=== PATIENT | male | born 1945 | race African-American/Black ===

== ENCOUNTER 2017-10-30 06:26 | Day surgery (SDC) | payer OTHER ==
--- NOTE | 2017-10-17 15:35 | RAD REPORT ---
EXAM DESCRIPTION: Sen Callahan And Heath (2 Views)10/17/2017 3:26 pm CLINICAL HISTORY: Coronary artery disease/cardiac catheterization COMPARISON: None FINDINGS: The lungs appear clear of acute infiltrate. The heart is normal size. Aorta is tortuous/e ctatic IMPRESSION: No acute abnormalities displayed
--- OUTSIDE RECORDS SUMMARY | 2017-10-30 06:28 | XMS REPORT | Clinical Summary ---
:1945 Author Organization [facility] Address [address] [place] [address] Care Team Providers Name Role Phone Gagan Salinas MD Primary Care Provider Allergies Active Allergy Reactions Severity Noted Date Comments Propoxyphene Rash Low 09/09/2015 Valsartan 09/09/2015 Current Medications Prescription Sig. Disp. Refills Start End Date Status Date cyanocobalamin 1000 Take 1,000 mcg by Active MCG tablet mouth daily. cholecalciferol, Take 8,000 Units Active vitamin D3, by mouth daily. (VITAMIN D3) 4,000 unit capsule zinc 50 mg tablet Take 50 mg by Active mouth daily. jyrjteeq-spj-xqdxcd Take 500 mg by Active -vit C-hyal mouth 3 (three) [phone] mg times a day. tablet b complex vitamins Take 1 tablet by Active (B-50 COMPLEX) mouth daily. tablet insulin degludec Inject 50 Units 30 mL 3 Active (TRESIBA FLEXTOUCH under the skin 6 U-200) 200 unit/mL daily. (3 mL) insulin pen omeprazole Take 20 mg by Active (PriLOSEC) 20 MG mouth daily. capsule amLODIPine TAKE 1 TABLET BY 90 tablet 3 Active (NORVASC) 10 mg MOUTH EVERY DAY 7 tablet allopurinol Take 1 tablet (300 90 tablet 3 Active (ZYLOPRIM) 300 MG mg total) by mouth 7 tablet daily. lancets misc Use 3 times daily 300 each 3 Active as needed 8 furosemide (LASIX) TAKE 1 TABLET BY 90 tablet 1 Active 20 mg tablet MOUTH EVERY DAY 8 atorvastatin TAKE 1 TABLET BY 90 tablet 2 Active (LIPITOR) 20 MG MOUTH ONCE A DAY 8 tablet BD ULTRA-FINE [place]EL[place]Y USE WITH INSULIN 200 each 1 Active PEN NEEDLES 32 PENS 8 gauge x 5/32" needle NOVOLOG FLEXPEN INJECT 15 UNITS 45 pen 3 Active U-100 INSULIN 100 SUBCUTANEOUSLY 3 8 unit/mL insulin pen TIMES A DAY BEFORE MEALS metoprolol tartrate TAKE 1 TABLET BY 60 tablet 0 Active (LOPRESSOR) 100 mg MOUTH 2 TIMES 8 tablet DAILY WITH A MEAL metoprolol Take 100 mg by 08/03/19 Discontinued succinate XL mouth 2 (two) 18 (TOPROL-XL) 100 MG times a day. 24 hr tablet allopurinol Take 1 tablet (300 90 tablet 3 01/11/20 Discontinued (ZYLOPRIM) 300 MG mg total) by mouth 6 17 tablet daily. pen needle, Use with insulin 300 each 3 06/20/19 Discontinued diabetic (BD pens 6 18 ULTRA-FINE [place] PEN NEEDLES) 32 gauge x 5/32" needle MICROLET LANCET USE TO TEST 3 300 each 0 05/01/19 Discontinued misc TIMES DAILY 7 18 furosemide (LASIX) Take 1 tablet (20 90 tablet 1 11/28/19 Discontinued 20 mg tablet mg total) by mouth 7 17 daily. atorvastatin TAKE 1 TABLET BY 90 tablet 2 06/01/19 Discontinued (LIPITOR) 20 MG MOUTH DAILY 7 18 tablet NOVOLOG FLEXPEN 100 INJECT 15 UNITS 45 pen 3 07/20/19 Discontinued unit/mL insulin pen SUBCUTANEOUSLY 3 7 18 TIMES A DAY BEFORE MEALS blood sugar Use 1 test strip 3 300 strip 3 05/01/19 Discontinued diagnostic strips times daily for 7 18 (CONTOUR TEST diabetes STRIPS) strip test strips metoprolol tartrate TAKE 1 TABLET BY 180 tablet 2 08/03/19 Discontinued (LOPRESSOR) 100 mg MOUTH 2 TIMES 7 18 tablet DAILY WITH A MEAL furosemide (LASIX) TAKE 1 TABLET (20 90 tablet 1 06/01/19 Discontinued 20 mg tablet MG TOTAL) BY MOUTH 7 18 DAILY. blood sugar One Touch Verio Strips Use 1 test strip 3 times daily for diabetes 300 strip 6 05/03/19 Discontinued diagnostic strips Dx:E11.9 8 18 (glucose blood) strip test strips lancets (MICROLET USE TO TEST 3 TIMES DAILY 300 each 6 05/03/19 Discontinued LANCET) misc Lancets for One Touch Verio 8 18 Active Problems Problem Noted Date Peripheral edema 05/26/2016 Chronic kidney disease, stage III (moderate) 09/09/2015 Abnormal electrocardiogram 09/09/2015 Onychomycosis 09/09/2015 Testicular hypofunction 09/09/2015 Elevated prostate specific antigen (PSA) 01/25/2013 Uncontrolled type 2 diabetes mellitus 10/17/2011 Degeneration of intervertebral disc of lumbar region 06/03/2010 Diabetes mellitus 06/03/2010 Essential hypertension 06/03/2010 Gout 06/03/2010 Malignant neoplasm of prostate 06/03/2010 Mixed hyperlipidemia 06/03/2010 Encounters Date Type Specialty Care Team Description 09/27/2017 Refill Internal Medicine Gagan Salinas MD 08/02/2017 Refill Internal Medicine Gagan Salinas MD 07/19/2017 Refill Internal Medicine Gagan Salinas MD 06/19/2017 Refill Endocrinology Gagan Salinas MD 06/01/2017 Refill Internal Gagan Patel MD 05/03/2017 Orders Only Internal Medicine Gagan Salinas MD 05/01/2017 Orders Only Access Gagan Salinas MD 05/01/2017 Refill Internal Medicine Yumiko Mednez MA 01/10/2017 Refill Internal Medicine Yumiko Mendez MA 11/27/2016 Refill Internal Medicine Gagan Salinas MD 11/01/2016 Orders Only Internal Medicine Gagan Salinas Type 2 diabetes mellitus with complication, unspecified snf insulin use status (Primary Dx) 10/31/2016 Telephone Internal Medicine Tiera Gomez LVN after 10/29/2016 Immunizations Name Dates Previously Given Next Due FLUZONE HIGH-DOSE PF 02/15/2016, 12/05/2013 Influenza Split 03/07/2011 Influenza Trivalent 12/06/2007 Pneumococcal Conjugate 13-Valent 02/15/2016 Pneumococcal Polysaccharide 12/08/2009, 12/06/2007 Td 10/06/2008 Family History Medical History Relation Name Comments Diabetes Brother Hypertension Brother Kidney disease Brother Hypertension Father Stroke Father Cancer Mother Relation Name Status Comments Brother Father Mother Social History Tobacco Use Types Packs/Day Years Used Date Never Smoker Smokeless Tobacco: Never Used Alcohol Use Drinks/Week oz/Week Comments No Sex Assigned at Date Recorded Not on file Last Filed Vital Signs Not on file Plan of Treatment Health Maintenance Due Date Last Done Comments SHINGRIX VACCINE (#1) 1994 ZOSTER VACCINE 2004 DIABETIC FOOT EXAM 02/14/2017 02/15/2016, 02/15/2016, 10/21/2015 INFLUENZA VACCINE 11/08/2017 02/15/2016, 02/15/2016, 12/05/2013, Additional history exists DIABETIC RETINAL EYE EXAM 06/13/2018 06/13/2016, 03/22/2015 COLON CANCER SCREENING 05/26/2021 05/26/2016, 03/07/2008 PNEUMOCOCCAL POLYSACCHARIDE VACCINE Completed 12/08/2009, 12/06/2007 AGE 65 AND OVER PNEUMOCOCCAL-13 Completed 02/15/2016 Procedures Procedure Name Priority Date/Time Associated Diagnosis Comments HEMOGLOBIN A1C Routine 11/01/2016 9:13 AM Type 2 diabetes Results for this CDT mellitus with procedure are in complication, the results unspecified multimedia journalist section. insulin use status after 10/29/2016 Results Hemoglobin A1c (11/01/2016 9:13 AM) Hemoglobin A1C 7.1 (H) <5.7 % of total [facility] Comment: b INDEPENDENCE For someone without known diabetes, a hemoglobin A1c value of 6.5% or greater indicates that they may have diabetes and this should be confirmed with a follow-up test. For someone with known diabetes, a value <7% indicates that their diabetes is well controlled and a value greater than or equal to 7% indicates suboptimal control. A1c targets should be individualized based on duration of diabetes, age, comorbid conditions, and other considerations. Currently, no consensus exists regarding use of hemoglobin A1c for diagnosis of diabetes for children. Specimen Blood Narrative Performed At FASTING[facility] Resulting Agency Comment Performing Organization Information: Site ID: [id number] Name: [facility] Address: [address] [place] [id number] Director: Kathya Myles MD Performing Organization Address City/State/Zipcode Phone Number [employer] [facility] [address] [place], [place] [id number] after 10/29/2016 Insurance Payer Benefit Plan / Group Subscriber ID Type Phone Address AETNA MEDICARE AETNA MEDICARE HMO/PPO [facility] xxxxxxxx HMO Work: [id number] [phone] [phone] [place], [place] Home: [id number] [phone] [facility]
[2017-10-30] MEDS ORDERED: NA CHLORIDE 0.9% 500 ML ONE (06:38)
[2017-10-30] MEDS ORDERED: HEPA 1000U/500MLS 2,000 UNIT/1,000 ML BAG IV ONE (06:59)
[2017-10-30] MEDS ORDERED: LIDOCAINE 1% MPF 2 ML AMPULE ONE (06:59)
[2017-10-30 07:07] LABS: Absolute Monocytes 0.8 K/uL (0.1-1.3); Absolute Neutrophil 3.8 K/uL (1.8-8.0); Basophils % 0.4 % (0-1.3); Eosinophils % 3.9 % (0-4.4); Hematocrit 39.4 % (39.6-49.0); Lymphocytes % 28.8 % (15.3-44.8); MCH 27.8 pg (27.0-35.0); MCV 82.1 fL (80-100); MPV 10.2 fL (7.6-11.3); Monocytes % 11.1 % (3.3-12.3)
[2017-10-30 07:11] LABS: Protime INR 0.98
[2017-10-30] MEDS ORDERED: NICARDIPINE HCL 25 MG/10 ML IV ONE (07:29)
[2017-10-30] MEDS ORDERED: HEPARIN 5000 UNIT/ML 1 ML VIAL ONE (07:29)
[2017-10-30] MEDS ORDERED: MIDAZOLAM HCL 2 MG/2 ML INJ ONE (07:29)
[2017-10-30] MEDS ORDERED: NITROGLYCERIN/D5W 25 MG/250 ML BTL IV ONE (07:29)
[2017-10-30] MEDS ORDERED: FENTANYL CITR 100 MCG/2 ML ONE (07:29)
[2017-10-30] MEDS ORDERED: NA CHLORIDE 0.9% 0 ML ONE (07:30)
[2017-10-30] MEDS ORDERED: ATROPINE SULF 1 MG/10 ML SYR IV ONE (07:30)
== END 2017-10-30 08:50 | disposition home or self-care (01) ==
LOC: CCL 06:26
PROVIDERS: ATTEND Internal Medicine
PROC: 4A023N7 Measurement of Cardiac Sampling and Pressure, Left Heart, Percutaneous Approach (ICD-10-PCS; principal; 2017-10-30)
PROC: B200YZZ Plain Radiography of Single Coronary Artery using Other Contrast (ICD-10-PCS; 2017-10-30)
PROC: B205YZZ Plain Radiography of Left Heart using Other Contrast (ICD-10-PCS; 2017-10-30)
DX: I25.10 Atherosclerotic heart disease of native coronary artery without angina pectoris (principal); Z53.8 Procedure and treatment not carried out for other reasons; R94.4 Abnormal results of kidney function studies
CPT/HCPCS: 36415; 71046; 80048; 82962; 85025; 85610; 85730; 93458; J1644; J2250; J3010; J0583; J2001

== ENCOUNTER 2018-01-06 06:52 | Emergency (ER) | payer OTHER ==
--- OUTSIDE RECORDS SUMMARY | 2018-01-06 06:54 | XMS REPORT ---
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, unspecified site Problem Type 2 diabetes mellitus without E11.9 Active complications Problem Coronary artery disease involving I25.10 Active [place] coronary artery of [place] heart without angina pectoris Problem 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
--- OUTSIDE RECORDS SUMMARY | 2018-01-06 06:54 | XMS REPORT ---
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, unspecified site Problem Type 2 diabetes mellitus without E11.9 Active complications Problem Coronary artery disease involving I25.10 Active [place] coronary artery of [place] heart without angina pectoris Problem 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 Problem Chronic kidney disease, stage 4 N18.4 Active (severe) Problem Gastroesophageal reflux disease K21.9 Active without esophagitis Problem Essential hypertension I10 Active Problem Coronary artery disease of [place] I25.118 Active artery with stable angina pectoris, unspecified whether [place] or transplanted heart Problem Chronic kidney disease, N18.9 Active unspecified CKD stage Medications Medication Code Code Instructions Start End Status Dosage System Date Date Atorvastatin ND 40880504322 20 MG Orally Active 1 tablet Calcium Once a day Allopurinol [facility] 22504672569 100 MG Orally Active 1 tablet Once a day Calcitriol ND 87268302838 0.25 MCG Orally Active 1 capsule Once a day Amlodipine ND 58941953877 5 MG Orally Active 1 tablet Besylate Once a day Metoprolol ND 12395344715 50 MG Orally October 03, Active 1 tablet Tartrate Twice a day 2017 with food Lisinopril ND 28906433659 20 MG Orally November 02, Active 1 tablet Once a day 2018 Xultophy ND 86929298241 100-3.6 November 02, Active 30 units UNIT-MG/ML 2018 Subcutaneous daily HydrALAZINE HCl ND 43468327250 25 MG Orally Active 1 tablet Three times a with food day Results No Known Results Summary Purpose [employer]Works Submission
--- OUTSIDE RECORDS SUMMARY | 2018-01-06 06:54 | XMS REPORT ---
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, unspecified site Problem Type 2 diabetes mellitus without E11.9 Active complications Problem Coronary artery disease involving I25.10 Active [place] coronary artery of [place] heart without angina pectoris Problem 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
--- OUTSIDE RECORDS SUMMARY | 2018-01-06 06:54 | XMS REPORT ---
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, unspecified site Problem Type 2 diabetes mellitus without E11.9 Active complications Problem Coronary artery disease involving I25.10 Active [place] coronary artery of [place] heart without angina pectoris Problem 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 Problem Chronic kidney disease, stage 4 N18.4 Active (severe) Problem Gastroesophageal reflux disease K21.9 Active without esophagitis Problem Essential hypertension I10 Active Problem Coronary artery disease of [place] I25.118 Active artery with stable angina pectoris, unspecified whether [place] or transplanted heart Problem Chronic kidney disease, N18.9 Active unspecified CKD stage Medications Medication Code Code Instructions Start End Date Status Dosage System Date Tresiba [facility] 33368594980 200 UNIT/ML Jan 01 20 units FlexTouch Subcutaneous 2017 once daily Victoza [facility] 60283293754 18 MG/3ML Jan 01June Active 1.2 mg Subcutaneous 2017 once daily Results No Known Results Summary Purpose [employer]ClinicalWorks Submission
--- OUTSIDE RECORDS SUMMARY | 2018-01-06 06:54 | XMS REPORT ---
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 Problem Chronic kidney disease, stage 4 N18.4 Active (severe) Problem Gastroesophageal reflux disease K21.9 Active without esophagitis Problem Essential hypertension I10 Active Problem Coronary artery disease of [place] I25.118 Active artery with stable angina pectoris, unspecified whether [place] or transplanted heart Problem Chronic kidney disease, N18.9 Active unspecified CKD stage Assessment 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, unspecified laterality Assessment Chronic kidney disease, stage 4 N18.4 Active (severe) Assessment 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 Assessment Coronary artery disease of [place] I25.118 Active artery with stable angina pectoris, unspecified whether [place] or transplanted heart Assessment Essential (primary) hypertension I10 Active Assessment Type 2 diabetes mellitus without E11.9 Active complications Problem 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, unspecified site Assessment Mixed hyperlipidemia E78.2 Active Problem Type 2 diabetes mellitus without E11.9 Active complications Medications Medication Code Code Instructions Start End Status Dosage System Date Date Metoprolol ND 51876510980 100 MG Orally Active 1 tablet Succinate ER Twice a day Allopurinol ND 13871483655 300 MG Orally Active 1 tablet Once a day Furosemide ND 83316655090 20 MG Orally Active 1 tablet Once a day Metoprolol ND 58438073678 50 MG Orally October 03, Active 1 tablet Tartrate Twice a day 2017 with food Niaspan ND 36793173807 500 MG Orally November 02October Active 1 tablet Once a day 2017 21, at bedtime 2018 Amlodipine ND 77760862573 10 MG Orally Active 1 tablet Besylate Once a day Atorvastatin [facility] 69013991042 20 MG Orally Active 1 tablet Calcium Once a day NovoLog [facility] 25640215493 100 UNIT/ML Active 25units Subcutaneous Lisinopril [facility] 60716766247 20 MG Orally November 02, Active 1 tablet Once a day 2017 Lisinopril [facility] 92536932453 10 MG Orally October 03, Inactive 1 tablet Once a day 2017 Xultophy [facility] 69461963707 100-3.6 November 02, Active 30 units UNIT-MG/ML 2017 Subcutaneous daily Calcitriol [facility] 32674131025 0.25 MCG Orally Active 1 capsule Once a day Results No Known Results Summary Purpose [employer]ClinicalWorks Submission
--- OUTSIDE RECORDS SUMMARY | 2018-01-06 06:54 | XMS REPORT | Clinical Summary ---
:1945 Author Organization [facility] Address [address] [place] [address] Care Team Providers Name Role Phone Gagan [...] Take 50 mg by Active mouth daily. [id number]-tqm-feeoze Take 500 mg by Active -vit C-hyal mouth 3 (three) 790-569-190-10 mg times a day. tablet b complex [...] 300 each 3 Active as needed 8 atorvastatin TAKE 1 TABLET BY 90 [...] TIMES 8 tablet DAILY WITH A MEAL furosemide (LASIX) Take 1 tablet (20 90 tablet 1 Active 20 mg tablet mg total) by mouth 8 daily. metoprolol Take 100 mg by 08/03/19 Discontinued [...] 05/01/19 Discontinued misc TIMES DAILY 7 18 atorvastatin TAKE 1 TABLET BY 90 tablet [...] DAILY 300 each 6 05/03/19 Discontinued LANCET) [facility] Lancets for One Touch Verio 8 18 furosemide (LASIX) TAKE 1 TABLET BY 90 tablet 1 12/26/19 Discontinued 20 mg tablet MOUTH EVERY DAY 8 18 Active Problems Problem Noted Date Peripheral edema 05/26/2016 Chronic kidney disease, stage III (moderate) 09/09/2015 Abnormal electrocardiogram 09/09/2015 Onychomycosis 09/09/2015 Testicular hypofunction 09/09/2015 Elevated prostate specific antigen (PSA) 01/25/2013 Uncontrolled type 2 diabetes mellitus 10/17/2011 Degeneration of intervertebral disc of lumbar region 06/03/2010 Diabetes mellitus 06/03/2010 Essential hypertension 06/03/2010 Gout 06/03/2010 Malignant neoplasm of prostate (HCC) 06/03/2010 Mixed hyperlipidemia 06/03/2010 Encounters Date Type Specialty Care Team Description 12/25/2017 Orders Only Internal Medicine Gagan Salinas MD 09/27/2017 Refill Internal Medicine Gagan Salinas MD 08/02/2017 Refill Internal Medicine Gagan Salinas MD 07/19/2017 Refill Internal Medicine Gagan Salinas MD 06/19/2017 Refill Endocrinology Gagan Salinas MD 06/01/2017 Refill Internal Medicine Gagan Salinas MD 05/03/2017 Orders Only Internal Medicine Gagan Salinas MD 05/01/2017 Orders Only Access Gagan Salinas MD 05/01/2017 Refill Internal Medicine Yumiko Mendez MA 01/10/2017 Refill Internal Medicine Yumiko Mendez MA after 01/05/2017 Immunizations Name Dates Previously Given Next Due [...] AGE 65 AND OVER PNEUMOCOCCAL-13 Completed 02/15/2016 Results Not on fileafter 01/05/2017 Insurance Payer Benefit Plan / Group Subscriber ID Type Phone Address AETNA MEDICARE AETNA MEDICARE HMO/PPO [facility] xxxxxxxx HMO Work: [id number] [phone] [phone] [place], [place] Home: [id number] [phone] [facility]
[2018-01-06] MEDS ORDERED: COLCHICINE 0.6 MG TAB ONE (07:31)
[2018-01-06 07:35] LABS: Absolute Lymphocytes (CBC) 1.6 K/uL (0.7-4.9); Absolute Monocytes 0.7 K/uL (0.1-1.3); Absolute Neutrophil 4.7 K/uL (1.8-8.0); Basophils % 0.3 % (0-1.3); Eosinophils % 2.7 % (0-4.4); Lymphocytes % 22.7 % (15.3-44.8); MCH 27.5 pg (27.0-35.0); MCV 82.5 fL (80-100); MPV 9.5 fL (7.6-11.3); Monocytes % 9.2 % (3.3-12.3); RBC Red Blood Cell Count 5.09 M/uL (4.33-5.43)
[2018-01-06 07:40] LABS: Potassium 4.5 mmol/L (3.5-5.1); Uric Acid 6.4 mg/dL (3.5-7.2)
--- NOTE | 2018-01-06 08:21 | EDPHYS ---
Physician Documentation [facility] Name: Marcelino Enriquez Age: 72 yrs Sex: Male : 1945 Arrival Date: 01/06/2018 Time: 06:52 Bed 20 Private MD: ED Physician Rodriguez Coffey HPI: 01/06 07:15 This 72 yrs old Black Male presents to ER via Ambulatory with complaints of Knee Pain. kb 07:15 The patient presents with pain, that is acute, swelling. The complaints affect the kb right knee. Context: The problem was sustained at home, resulted from an unknown cause, the patient can fully bear weight, the patient is able to ambulate, Problem is a result from a previous injury: No. Onset: The symptoms/episode began/occurred yesterday. Modifying factors: The symptoms are alleviated by nothing. the symptoms are aggravated by weight bearing. Associated signs and symptoms: Pertinent positives: swelling, warmth, Pertinent negatives calf tenderness, fever, nausea, numbness, rash, tingling, vomiting, weakness. Treatment prior to arrival includes: no previous treatment. Severity of symptoms: At their worst the symptoms were moderate, in the emergency department the symptoms are unchanged. The patient has not experienced similar symptoms in the past. The patient has not recently seen a physician. Pt reports knee pain that started yesterday. Worse with weight bearing. Denies tenderness upon palpation. Denies injury or trauma. Slight redness, increased warmth to proximal right knee, just above patella. Denies fever. Full ROM without difficulty. Pt did not take his bp meds this morning. Asymptomatic of bp. Historical: - Allergies: 07:09 No Known Allergies; ss - Home Meds: 07:09 hydralazine 25 mg Oral tab 1 tab three times a day [Active]; atorvastatin 20 mg oral ss tab 1 tab once daily [Active]; lisinopril 20 mg Oral tab 1 tab once daily [Active]; metoprolol tartrate 50 mg Oral tab 1 tab 2 times per day [Active]; allopurinol 100 mg Oral tab 1 tab once daily [Active]; amlodipine 5 mg tab 1 tab once daily [Active]; Xultophy 100/3.6 30 units in the am [Active]; - PMHx: 07:09 Gout; Hypertension; High Cholesterol; Diabetes - IDDM; ss - PSHx: 07:10 back sx; ss - Immunization history:: Adult Immunizations up to date. - Social history:: Smoking status: Patient/guardian denies using tobacco. - Ebola Screening: : Patient denies exposure to infectious person Patient denies travel to an Ebola-affected area in the 21 days before illness onset. ROS: 07:12 Constitutional: Negative for fever, chills, and weight loss, Cardiovascular: Negative kb for chest pain, palpitations, and edema, Respiratory: Negative for shortness of breath, cough, wheezing, and pleuritic chest pain, Abdomen/GI: Negative for abdominal pain, nausea, vomiting, diarrhea, and constipation, Back: Negative for injury and pain, : Negative for injury, bleeding, discharge, and swelling, Neuro: Negative for headache, weakness, numbness, tingling, and seizure. 07:12 MS/extremity: Positive for erythema, pain, warmth. Exam: 07:13 Constitutional: This is a well developed, well nourished patient who is awake, alert, kb and in no acute distress. Head/Face: Normocephalic, atraumatic. Chest/axilla: Normal chest wall appearance and motion. Nontender with no deformity. No lesions are appreciated. Cardiovascular: Regular rate and rhythm with a normal S1 and S2. No gallops, murmurs, or rubs. Normal PMI, no JVD. No pulse deficits. Respiratory: Lungs have equal breath sounds bilaterally, clear to auscultation and percussion. No rales, rhonchi or wheezes noted. No increased work of breathing, no retractions or nasal flaring. Abdomen/GI: Soft, non-tender, with normal bowel sounds. No distension or tympany. No guarding or rebound. No evidence of tenderness throughout. Back: No spinal tenderness. No costovertebral tenderness. Full range of motion. MS/ Extremity: Pulses equal, no cyanosis. Neurovascular intact. Full, normal range of motion. Neuro: Awake and alert, GCS 15, oriented to person, place, time, and situation. Cranial nerves II-XII grossly intact. Motor strength 5/5 in all extremities. Sensory grossly intact. Cerebellar exam normal. Normal gait. 07:13 Skin: Appearance: normal except for affected area, Color: erythematous, Temperature: hot, Moisture: normal moisture, dry, swelling, noted on the right knee, that are mild. Vital Signs: 07:02 BP 216 / 115; Pulse 84; Resp 16; Temp 97.8(TE); Pulse Ox 98% on R/A; Weight 112.49 kg; ss Height 5 ft. 10 in. (177.80 cm); Pain 2/10; 07:30 BP 210 / 111; Pulse 80; Resp 16; Pulse Ox 100% on R/A; em 07:59 BP 195 / 107; Pulse 73; Resp 15; Pulse Ox 97% on R/A; em 07:02 Body Mass Index 35.58 (112.49 kg, 177.80 cm) ss MDM: 06:55 Patient medically screened. kb 07:12 Data reviewed: vital signs, nurses notes. Data interpreted: Pulse oximetry: on room air kb is 98 %. Interpretation: normal. 08:19 Counseling: I had a detailed discussion with the patient and/or guardian regarding: the kb historical points, exam findings, and any diagnostic results supporting the discharge/admit diagnosis, lab results, radiology results, the need for outpatient follow up, a family practitioner, to return to the emergency department if symptoms worsen or persist or if there are any questions or concerns that arise at home. ED course: Pt states "I'm sure it's gout. I just wanted a shot of cortisone in my knee to make it better. They did that for my in the office before and it fixed it." . 08:26 ED course: Pt is going to take home bp medications upon discharge. Asymptomatic of kb blood pressure, no headache, dizziness, blurry vision.. 01/06 07:04 Order name: CBC with Diff; Complete Time: 07:38 kb 01/06 07:04 Order name: Basic Metabolic Panel; Complete Time: 07:43 kb 01/06 07:04 Order name: Uric Acid; Complete Time: 07:43 kb 01/06 07:04 Order name: Procalcitonin; Complete Time: 08:00 kb 01/06 07:04 Order name: Lactate; Complete Time: 08:00 kb 01/06 07:15 Order name: Knee Right 3 View XRAY kb 01/06 07:04 Order name: IV Start; Complete Time: 07:22 kb Administered Medications: 07:30 Drug: Colcrys 0.6 mg Route: PO; em 08:18 Follow up: Response: No adverse reaction em 08:26 Drug: SOLU-Medrol 125 mg Route: IVP; Site: right antecubital; la1 08:44 Follow up: Response: No adverse reaction em Disposition: 01/07 07:18 Co-signature as Attending Physician, Rodriguez Coffey MD I agree with the assessment and ronen plan of care. Disposition: 01/06/18 08:20 Discharged to Home. Impression: Pain in right knee. - Condition is Stable. - Discharge Instructions: Knee Pain, [id number]. - Prescriptions for Prednisone 20 mg Oral Tablet - take 1 tablet by ORAL route once daily for 5 days; 5 tablet. - Medication Reconciliation Form, Thank You Letter, Antibiotic Education, Prescription Opioid Use form. - Follow up: Emergency Department; When: As needed; Reason: Worsening of condition. Follow up: Private Physician; When: 2 - 3 days; Reason: Recheck today's complaints, Continuance of care, Re-evaluation by your physician. Signatures: Dispatcher [employer] Gege Blackman, ANALYSIS INTERNSHIP-C ANALYSIS INTERNSHIP-Rodriguez Parnell MD MD cha Munoz, Edgar, WHEEL BRAIDER WHEEL BRAIDER em Carolyn Alves RN RN ss Attema, Lee, RN RN la1 Corrections: (The following items were deleted from the chart) 01/06 07:13 07:12 MS/extremity: Positive for ecchymosis, pain, warmth, kb kb 08:44 08:20 01/06/2018 08:20 Discharged to Home. Impression: Pain in right knee. Condition is em Stable. Forms are Medication Reconciliation Form, Thank You Letter, Antibiotic Education, Prescription Opioid Use. Follow up: Emergency Department; When: As needed; Reason: Worsening of condition. Follow up: Private Physician; When: 2 - 3 days; Reason: Recheck today's complaints, Continuance of care, Re-evaluation by your physician. kb
--- NOTE | 2018-01-06 08:21 | ER ---
Nurse's Notes [facility] Name: Marcelino Enriquez Age: 72 yrs Sex: Male : 1945 Arrival Date: 01/06/2018 Time: 06:52 Bed 20 Private MD: Diagnosis: Pain in right knee Presentation: 01/06 07:03 Presenting complaint: Patient states: R knee pain that began yesterday morning. Denies ss injury. Transition of care: patient was not received from another setting of care. Onset of symptoms was January 05, 2018. Risk Assessment: Do you want to hurt yourself or someone else? Patient reports no desire to harm self or others. Initial Sepsis Screen: Does the patient meet any 2 criteria? No. Patient's initial sepsis screen is negative. Does the patient have a suspected source of infection? No. Patient's initial sepsis screen is negative. Care prior to arrival: None. 07:03 Method Of Arrival: Ambulatory ss 07:03 Acuity: GISELLE 3 ss Historical: - Allergies: 07:09 No Known Allergies; ss - Home Meds: 07:09 hydralazine 25 mg Oral tab 1 tab three times a day [Active]; atorvastatin 20 mg oral ss tab 1 tab once daily [Active]; lisinopril 20 mg Oral tab 1 tab once daily [Active]; metoprolol tartrate 50 mg Oral tab 1 tab 2 times per day [Active]; allopurinol 100 mg Oral tab 1 tab once daily [Active]; amlodipine 5 mg tab 1 tab once daily [Active]; Xultophy 100/3.6 30 units in the am [Active]; - PMHx: 07:09 Gout; Hypertension; High Cholesterol; Diabetes - IDDM; ss - PSHx: 07:10 back sx; ss - Immunization history:: Adult Immunizations up to date. - Social history:: Smoking status: Patient/guardian denies using tobacco. - Ebola Screening: : Patient denies exposure to infectious person Patient denies travel to an Ebola-affected area in the 21 days before illness onset. Screenin:22 Abuse screen: Denies threats or abuse. Nutritional screening: No deficits noted. em Tuberculosis screening: No symptoms or risk factors identified. Fall Risk None identified. Assessment: 07:30 General: Appears in no apparent distress. uncomfortable, Behavior is calm, cooperative, em Denies fever. Pain: Complains of pain in right knee. Neuro: Level of Consciousness is awake, alert, obeys commands, Oriented to person, place, time, situation. Cardiovascular: Denies chest pain, lightheadedness, nausea, shortness of breath, Capillary refill < 3 seconds. Respiratory: Airway is patent Respiratory effort is even, unlabored, Respiratory pattern is regular, symmetrical, Breath sounds are clear bilaterally. GI: Abdomen is obese. : No signs and/or symptoms were reported regarding the genitourinary system. EENT: No signs and/or symptoms were reported regarding the EENT system. Derm: Skin is intact, Skin is pink, warm \T\ dry. Musculoskeletal: Capillary refill < 3 seconds, Range of motion: intact in all extremities. 08:07 Reassessment: Patient appears in no apparent distress at this time. Patient and/or em family updated on plan of care and expected duration. Pain level reassessed. Patient is alert, oriented x 3, equal unlabored respirations, skin warm/dry/pink. pt reports not taking BP medication this morning. Vital Signs: 07:02 BP 216 / 115; Pulse 84; Resp 16; Temp 97.8(TE); Pulse Ox 98% on R/A; Weight 112.49 kg; Height 5 ft. 10 in. (177.80 cm); Pain 2/10; 07:30 BP 210 / 111; Pulse 80; Resp 16; Pulse Ox 100% on R/A; em 07:59 BP 195 / 107; Pulse 73; Resp 15; Pulse Ox 97% on R/A; em 07:02 Body Mass Index 35.58 (112.49 kg, 177.80 cm) ED Course: 06:52 Patient arrived in ED. ds1 06:55 Gege Lloyd FNP-C is PHCP. kb 06:55 Rodriguez Coffey MD is Attending Physician. kb 07:02 Arm band placed on right wrist. ss 07:04 Triage completed. ss 07:04 Gerald Trejo LVN is Primary Nurse. em 07:22 Patient has correct armband on for positive identification. Bed in low position. Call em light in reach. 07:22 No provider procedures requiring assistance completed. Initial lab(s) drawn, by me, em sent to lab. Inserted saline lock: 22 gauge in right antecubital area, using aseptic technique. Blood collected. 07:44 X-ray completed. Portable x-ray completed in exam room. Patient tolerated procedure la2 well. 07:45 Knee Right 3 View XRAY In Process Unspecified. EDMS 08:43 IV discontinued, intact, bleeding controlled, No redness/swelling at site. Pressure em dressing applied. Administered Medications: 07:30 Drug: Colcrys 0.6 mg Route: PO; em 08:18 Follow up: Response: No adverse reaction em 08:26 Drug: SOLU-Medrol 125 mg Route: IVP; Site: right antecubital; la1 08:44 Follow up: Response: No adverse reaction em Outcome: 08:20 Discharge ordered by . olivia 08:43 Discharged to home ambulatory. em 08:43 Condition: good 08:43 Discharge instructions given to patient, Instructed on discharge instructions, follow up and referral plans. medication usage, Demonstrated understanding of instructions, follow-up care, medications, Prescriptions given X 1. 08:44 Patient left the ED. em Signatures: Dispatcher [employer] EDMS Gege Lloyd, YANNI-C PEG DRIVER-Gerald Estrada, JOURNEYMAN POWER PLANT OPERATOR JOURNEYMAN POWER PLANT OPERATOR em Britney Dong ds1 Carolyn Alves RN RN ss Chivo Mccrary RN RN la1 Maryuri Linares la2 Corrections: (The following items were deleted from the chart) 07:11 07:03 Acuity: GISELLE 4 ss ss
[2018-01-06] MEDS ORDERED: METHYLPREDNISOLONE 125 MG INJ ONE (08:25)
--- NOTE | 2018-01-06 08:47 | RAD REPORT ---
EXAM DESCRIPTION: RAD - Knee Right 3 View - 01/06/2018 7:48 am CLINICAL HISTORY: Nontraumatic knee pain COMPARISON: None. FINDINGS: No fracture, dislocation or periosteal reaction.Minimal joint effusion is evident. No join t space narrowing. Minimal spurring changes seen along the articular margins of the patella. There is spurring at the quadriceps attachment to the patella. Patient has degenerative meniscal calcificatio ns. IMPRESSION: Mild degenerative changes are present in the knee with small joint effusion. No acute or destructive finding. Clinical concerns for internal derangement or occult bony injury could be further assessed with MR im aging.
== END 2018-01-06 08:44 | disposition home or self-care (01) ==
LOC: ER 06:52
DX: M25.561 Pain in right knee (principal); I10 Essential (primary) hypertension; E78.00 Pure hypercholesterolemia, unspecified; E11.9 Type 2 diabetes mellitus without complications
CPT/HCPCS: 36415; 73562; 80048; 83605; 84145; 84550; 85025; 96374; 99284; J2930

== ENCOUNTER 2018-05-09 07:17 | Emergency (ER) | payer OTHER ==
--- OUTSIDE RECORDS SUMMARY | 2018-05-09 07:19 | XMS REPORT | Clinical Summary ---
:1945 Author Organization [facility] Address [address] [place] [address] Care Team Providers Name Role Phone Gagan Salinas MD Primary Care Provider Allergies Active Allergy Reactions Severity Noted Date Comments Propoxyphene Rash Low 09/09/2015 Valsartan 09/09/2015 Medications Medication Sig Dispensed Refills Start End Date Status Date cyanocobalamin Take 1,000 mcg by 0 Active 1000 MCG tablet mouth daily. cholecalciferol, Take 8,000 Units 0 Active vitamin D3, by mouth daily. (VITAMIN D3) 4,000 unit capsule zinc 50 mg tablet Take 50 mg by 0 Active mouth daily. rgewcgwo-izk-odsre Take 500 mg by 0 Active r-vit C-hyal mouth 3 (three) [phone] mg times a day. tablet b complex vitamins Take 1 tablet by 0 Active (B-50 COMPLEX) mouth daily. tablet insulin degludec Inject 50 Units 30 mL 3 Active (TRESIBA FLEXTOUCH under the skin 6 U-200) 200 unit/mL daily. (3 mL) insulin pen omeprazole Take 20 mg by 0 Active (PriLOSEC) 20 MG mouth daily. capsule amLODIPine TAKE 1 TABLET BY 90 tablet 3 Active (NORVASC) 10 mg MOUTH EVERY DAY 7 tablet lancets misc Use 3 times daily 300 each 3 Active as needed 8 BD ULTRA-FINE KELSEY USE WITH INSULIN 200 each 1 Active PEN NEEDLES 32 PENS 8 gauge x 5/32" needle NOVOLOG FLEXPEN INJECT 15 UNITS 45 pen 3 Active U-100 INSULIN 100 SUBCUTANEOUSLY 3 8 unit/mL insulin TIMES A DAY BEFORE pen MEALS metoprolol TAKE 1 TABLET BY 60 tablet 0 Active tartrate MOUTH 2 TIMES 8 (LOPRESSOR) 100 mg DAILY WITH A MEAL tablet furosemide (LASIX) Take 1 tablet (20 90 tablet 1 Active 20 mg tablet mg total) by mouth 8 daily. allopurinol Take 1 tablet (300 90 tablet 3 Active (ZYLOPRIM) 300 MG mg total) by mouth 8 tablet daily. atorvastatin TAKE 1 TABLET BY 30 tablet 0 Active (LIPITOR) 20 MG MOUTH EVERY DAY 8 tablet metoprolol Take 100 mg by 0 08/03/19 Discontinued succinate XL mouth 2 (two) 18 (TOPROL-XL) 100 MG times a day. 24 hr tablet pen needle, Use with insulin 300 each 3 06/20/19 Discontinued diabetic (BD pens 6 18 ULTRA-FINE KELSEY PEN NEEDLES) 32 gauge x 5/32" needle atorvastatin TAKE 1 TABLET BY 90 tablet 2 06/01/19 Discontinued (LIPITOR) 20 MG MOUTH DAILY 7 18 tablet NOVOLOG FLEXPEN INJECT 15 UNITS 45 pen 3 07/20/19 Discontinued 100 unit/mL SUBCUTANEOUSLY 3 7 18 insulin pen TIMES A DAY BEFORE MEALS metoprolol TAKE 1 TABLET BY 180 tablet 2 08/03/19 Discontinued tartrate MOUTH 2 TIMES 7 18 (LOPRESSOR) 100 mg DAILY WITH A MEAL tablet furosemide (LASIX) TAKE 1 TABLET (20 90 tablet 1 06/01/19 Discontinued 20 mg tablet MG TOTAL) BY MOUTH 7 18 DAILY. allopurinol Take 1 tablet (300 90 tablet 3 01/31/20 Discontinued (ZYLOPRIM) 300 MG mg total) by mouth 7 18 tablet daily. furosemide (LASIX) TAKE 1 TABLET BY 90 tablet 1 12/26/19 Discontinued 20 mg tablet MOUTH EVERY DAY 8 18 atorvastatin TAKE 1 TABLET BY 90 tablet 2 04/01/20 Discontinued (LIPITOR) 20 MG MOUTH ONCE A DAY 8 18 tablet Active Problems Problem Noted Date Peripheral edema [...] Encounters Date Type Specialty Care Team Description 04/01/2018 Refill Internal Medicine Gagan Salinas MD 01/30/2018 Orders Only Internal Medicine Gagan Salinas MD 12/25/2017 Orders Only Internal Medicine Gagan Salinas MD 09/27/2017 Refill Internal Medicine Gagan Salinas MD 08/02/2017 Refill Internal Medicine Gagan Salinas MD 07/19/2017 Refill Internal Medicine Gagan Salinas MD 06/19/2017 Refill Endocrinology Gagan Salinas MD 06/01/2017 Refill Internal Medicine Gagan Salinas MD after 05/08/2017 Immunizations Name Dates Previously Given Next Due [...] Assigned at Date Recorded Not on file Job Start Date Occupation Industry Not on file Not on file Not on file Travel History Travel Start Travel End No recent travel history available. Last Filed Vital Signs Not on file Plan of Treatment Health Maintenance Due Date Last Done Comments SHINGLES VACCINES (1 of 2) 1994 DIABETIC FOOT EXAM 02/14/2017 02/15/2016, 02/15/2016, 10/21/2015 DIABETIC RETINAL EYE EXAM 06/13/2017 06/13/2016, 03/22/2015 INFLUENZA VACCINE 11/08/2017 02/15/2016, 02/15/2016, 12/05/2013, Additional history exists COLON CANCER SCREENING 05/26/2021 05/26/2016, 03/07/2008 PNEUMOCOCCAL POLYSACCHARIDE VACCINE Completed 12/08/2009, 12/06/2007 AGE 65 AND OVER PNEUMOCOCCAL-13 Completed 02/15/2016 Results Not on fileafter 05/08/2017 Insurance Payer Benefit Plan / Group Subscriber ID Type Phone Address AETNA MEDICARE AETNA MEDICARE HMO/PPO [facility] xxxxxxxx HMO (Work) [id number] Advance Directives Patient has advance care planning documents on file. For more information, please contact:Darell Mccain[address] [place] [address]
--- OUTSIDE RECORDS SUMMARY | 2018-05-09 07:19 | XMS REPORT ---
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 Problem Chronic kidney disease, stage 4 N18.4 Active (severe) Problem Gastroesophageal reflux disease K21.9 Active without esophagitis Problem Essential hypertension I10 Active Problem Coronary artery disease of [place] I25.118 Active artery with stable angina pectoris, unspecified whether [place] or transplanted heart Problem Chronic kidney disease, N18.9 Active unspecified CKD stage Assessment 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, unspecified laterality Assessment Chronic kidney disease, stage 4 N18.4 Active (severe) Assessment 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 Assessment Coronary artery disease of [place] I25.118 Active artery with stable angina pectoris, unspecified whether [place] or transplanted heart Assessment Essential (primary) hypertension I10 Active Assessment Type 2 diabetes mellitus without E11.9 Active complications Problem 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, unspecified site Assessment Mixed hyperlipidemia E78.2 Active Problem Type 2 diabetes mellitus without E11.9 Active complications Medications Medication Code Code Instructions Start End Status Dosage System Date Date Metoprolol ND 54064348353 100 MG Orally Active 1 tablet Succinate ER Twice a day Allopurinol ND 65537445413 300 MG Orally Active 1 tablet Once a day Furosemide ND 34093165670 20 MG Orally Active 1 tablet Once a day Metoprolol ND 73096640788 50 MG Orally October 03, Active 1 tablet Tartrate Twice a day 2017 with food Niaspan ND 82358245757 500 MG Orally November 02October Active 1 tablet Once a day 2017 21, at bedtime 2018 Amlodipine ND 52887729722 10 MG Orally Active 1 tablet Besylate Once a day Atorvastatin [facility] 36999745514 20 MG Orally Active 1 tablet Calcium Once a day NovoLog [facility] 41021238773 100 UNIT/ML Active 25units Subcutaneous Lisinopril [facility] 58693162066 20 MG Orally November 02, Active 1 tablet Once a day 2017 Lisinopril [facility] 02816533408 10 MG Orally October 03, Inactive 1 tablet Once a day 2017 Xultophy [facility] 40864463086 100-3.6 November 02, Active 30 units UNIT-MG/ML 2017 Subcutaneous daily Calcitriol [facility] 82471981915 0.25 MCG Orally Active 1 capsule Once a day Results No Known Results Summary Purpose eClinicalWorks Submission
--- OUTSIDE RECORDS SUMMARY | 2018-05-09 07:19 | XMS REPORT ---
:1945 [facility] Team Providers Name Role Phone Shine Shipman Provider Role Unavailable Allergies, Adverse Reactions, Alerts Substance Reaction Event Type Darvon rash Drug Allergy Problems Problem Type Condition Code Onset Dates Condition Status Problem Essential (primary) hypertension I10 Active Problem Gastroesophageal reflux disease K21.9 Active without esophagitis Problem Essential hypertension I10 Active Problem Acute gout of right ankle, M10.9 Active unspecified cause Assessment Stage 3 chronic kidney disease N18.3 Active Problem Stage 3 chronic kidney disease N18.3 Active Assessment Mixed hyperlipidemia E78.2 Active Assessment 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, unspecified whether [place] or transplanted heart Problem 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 Problem Chronic kidney disease, stage 4 N18.4 Active (severe) Problem Coronary artery disease involving I25.10 Active [place] coronary artery of [place] heart without angina pectoris Problem 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 Problem 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, unspecified whether [place] or transplanted heart Assessment Essential hypertension I10 Active Assessment Type 2 diabetes mellitus without E11.9 Active complications Assessment 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 Assessment Essential (primary) hypertension I10 Active Problem 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, unspecified site Problem Type 2 diabetes mellitus without E11.9 Active complications Assessment 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 Problem Mixed hyperlipidemia E78.2 Active Problem 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 Medications Medication Code Code Instructions Start End Date Status Dosage System Date HydrALAZINE HCl ND 69878269698 25 MG Orally Active 1 tablet Three times a with food day Furosemide ND 55529715787 20 MG Orally Active 1 tablet Once a day Metoprolol ND 12286421091 50 MG Orally Active 1 tablet Tartrate Twice a day with food Lisinopril ND 72061509293 20 MG Orally November 02, Active 1 tablet Once a day 2017 NovoLog [facility] 58510723349 100 UNIT/ML Active 25units Subcutaneous Victoza [facility] 88090133744 18 MG/3ML Jan 01June Active 1.2 mg Subcutaneous 2017 once daily Metoprolol [facility] 63840033051 100 MG Orally Active 1 tablet Succinate ER Twice a day Atorvastatin [facility] 24088697358 20 MG Orally Active 1 tablet Calcium Once a day Niaspan [facility] 30631587315 500 MG Orally November 02August 08, Active 1 tablet Once a day 2017 2018 at bedtime Tamsulosin HCl [facility] 42122448263 0.4 MG Orally Active 1 capsule Once a day Amlodipine [facility] 41520247267 10 MG Orally Active 1 tablet Besylate Once a day Tresiba [facility] 57764402817 200 UNIT/ML Jan 01, Active 22 units FlexTouch Subcutaneous 2017 once daily Calcitriol [facility] 19903211609 0.25 MCG Orally Active 1 capsule Once a day Allopurinol [facility] 55005117683 100 MG Orally Active 1 tablet Once a day Results Name Result Date Reference Range Unit Abnormality Flag Uric Acid ----Uric Acid 6.8 20180406 3.5-7.2 mg/dL Summary Purpose eClinicalWorks Submission
--- OUTSIDE RECORDS SUMMARY | 2018-05-09 07:19 | XMS REPORT ---
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
--- OUTSIDE RECORDS SUMMARY | 2018-05-09 07:19 | XMS REPORT ---
:1945 Author Organization eClinicalWorks Care Team Providers Name Role Phone Shine Shipman Provider Role Unavailable Allergies No Known Allergies Problems Problem Type Condition Code Onset Dates Condition Status Problem Mixed hyperlipidemia E78.2 Active Problem Essential (primary) hypertension I10 Active Problem [facility] current use of insulin Z79.4 Active Problem 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, unspecified site Problem Type 2 diabetes mellitus without E11.9 Active complications Problem Coronary artery disease involving I25.10 Active [place] coronary artery of [place] heart without angina pectoris Problem 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
--- OUTSIDE RECORDS SUMMARY | 2018-05-09 07:19 | XMS REPORT ---
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, unspecified site Problem Type 2 diabetes mellitus without E11.9 Active complications Problem Coronary artery disease involving I25.10 Active [place] coronary artery of [place] heart without angina pectoris Problem 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
--- OUTSIDE RECORDS SUMMARY | 2018-05-09 07:19 | XMS REPORT ---
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, unspecified whether [place] or transplanted heart Problem Acute gout of right ankle, M10.9 Active unspecified cause Problem 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 Problem Gastroesophageal reflux disease K21.9 Active without esophagitis Problem Chronic kidney disease, stage 4 N18.4 Active (severe) Problem Coronary artery disease involving I25.10 Active [place] coronary artery of [place] heart without angina pectoris Assessment Stage 3 chronic kidney disease N18.3 Active Assessment Type 2 diabetes mellitus without E11.9 Active complications Problem 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, unspecified site Problem Chronic kidney disease, N18.9 Active unspecified CKD stage Assessment Acute gout of right ankle, M10.9 Active unspecified cause Problem Type 2 diabetes mellitus without E11.9 Active complications Problem Mixed hyperlipidemia E78.2 Active Medications Medication Code Code Instructions Start End Date Status Dosage System Date Furosemide [facility] 74083997479 20 MG Orally Active 1 tablet Once a day Niaspan ND 35196874907 500 MG Orally November 02, October 28, Active 1 tablet Once a day 2017 2019 at bedtime HydrALAZINE HCl ND 29633480211 25 MG Orally Active 1 tablet Three times a with food day Xultophy [facility] 70567897937 100-3.6 November 02, Active 30 units UNIT-MG/ML 2017 Subcutaneous daily Allopurinol ND 45186208408 100 MG Orally Active 1 tablet Once a day Calcitriol [facility] 97568546253 0.25 MCG Orally Active 1 capsule Once a day Victoza [facility] 52552093770 18 MG/3ML Jan 01June Active 1.2 mg Subcutaneous 2017 once daily Tresiba ND 36684756917 200 UNIT/ML Jan 01, Active 20 units FlexTouch Subcutaneous 2017 once daily Lisinopril ND 56065365010 20 MG Orally November 02, Active 1 tablet Once a day 2017 [place] ND 21157906074 0.6 MG Orally Jan 16, Jan 31, Active 1 tablet Once a day 2017 2017 Metoprolol [facility] 24604196313 100 MG Orally Active 1 tablet Succinate ER Twice a day Amlodipine [facility] 94054933781 10 MG Orally Active 1 tablet Besylate Once a day Atorvastatin [facility] 51694851125 20 MG Orally Active 1 tablet Calcium Once a day Amlodipine [facility] 17336491024 5 MG Orally Active 1 tablet Besylate Once a day NovoLog [facility] 65483453194 100 UNIT/ML Active 25units Subcutaneous Allopurinol [facility] 88081386121 300 MG Orally Active 1 tablet Once a day Metoprolol [facility] 40792378471 50 MG Orally October 03, Active 1 tablet Tartrate Twice a day 2017 with food Results No Known Results Summary Purpose eClinicalWorks Submission
--- OUTSIDE RECORDS SUMMARY | 2018-05-09 07:19 | XMS REPORT ---
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 Problem Acute gout of right ankle, M10.9 Active unspecified cause Problem Stage 3 chronic kidney disease N18.3 Active Problem 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
--- OUTSIDE RECORDS SUMMARY | 2018-05-09 07:19 | XMS REPORT ---
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, unspecified site Problem Type 2 diabetes mellitus without E11.9 Active complications Problem Coronary artery disease involving I25.10 Active [place] coronary artery of [place] heart without angina pectoris Problem 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 Problem Chronic kidney disease, stage 4 N18.4 Active (severe) Problem Gastroesophageal reflux disease K21.9 Active without esophagitis Problem Essential hypertension I10 Active Problem 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, unspecified whether [place] or transplanted heart Problem Chronic kidney disease, N18.9 Active unspecified CKD stage Medications Medication Code Code Instructions Start End Status Dosage System Date Date Atorvastatin ND 68188859250 20 MG Orally Active 1 tablet Calcium Once a day Allopurinol [facility] 72451832441 100 MG Orally Active 1 tablet Once a day Calcitriol ND 53460621223 0.25 MCG Orally Active 1 capsule Once a day Amlodipine ND 64367043983 5 MG Orally Active 1 tablet Besylate Once a day Metoprolol ND 80662615138 50 MG Orally October 03, Active 1 tablet Tartrate Twice a day 2017 with food Lisinopril ND 84371508546 20 MG Orally November 02, Active 1 tablet Once a day 2018 Xultophy ND 60988548373 100-3.6 November 02, Active 30 units UNIT-MG/ML 2018 Subcutaneous daily HydrALAZINE HCl ND 21997483004 25 MG Orally Active 1 tablet Three times a with food day Results No Known Results Summary Purpose eClinicalWorks Submission
[2018-05-09] MEDS ORDERED: KETOROLAC 30 MG/ML INJ ONE (08:15)
--- NOTE | 2018-05-09 08:42 | ER ---
Nurse's Notes [facility] Name: Marcelino Enriquez Age: 72 yrs Sex: Male : 1945 Arrival Date: 05/09/2018 Time: 07:20 Bed 19 Private MD: Shine Shipman Diagnosis: Low back pain Presentation: 05/09 07:40 Presenting complaint: Patient states: intermittent R hip/ low back pain that radiates ss down R leg x 1 month. Transition of care: patient was not received from another setting of care. Onset of symptoms was March 2018. Risk Assessment: Do you want to hurt yourself or someone else? Patient reports no desire to harm self or others. Initial Sepsis Screen: Does the patient meet any 2 criteria? No. Patient's initial sepsis screen is negative. Does the patient have a suspected source of infection? No. Patient's initial sepsis screen is negative. Care prior to arrival: None. 07:40 Method Of Arrival: Ambulatory ss 07:40 Acuity: GISELLE 4 ss Historical: - Allergies: 07:42 Darvon; ss - PMHx: 07:42 Diabetes - IDDM; Gout; High Cholesterol; Hypertension; ss - PSHx: 07:42 back sx; ss - Immunization history:: Adult Immunizations up to date. - Social history:: Smoking status: Patient/guardian denies using tobacco, Patient/guardian denies using alcohol, street drugs, The patient lives with family. - Ebola Screening: : Patient denies exposure to infectious person Patient denies travel to an Ebola-affected area in the 21 days before illness onset. - Family history:: not pertinent. Screenin:50 Abuse screen: Denies threats or abuse. Denies injuries from another. Nutritional sg screening: No deficits noted. Tuberculosis screening: No symptoms or risk factors identified. Never had TB. Fall Risk None identified. Assessment: 07:50 General: Appears in no apparent distress. comfortable, well groomed, well developed, sg well nourished, Behavior is calm, cooperative, appropriate for age. Pain: Complains of pain in left low back and left leg Quality of pain is described as sharp. Neuro: Level of Consciousness is awake, alert, obeys commands, Oriented to person, place, time, situation, Book Binder are equal bilaterally Moves all extremities. Full function Gait is steady, Speech is normal, Facial symmetry appears normal. Cardiovascular: Capillary refill is brisk in bilateral fingers Patient's skin is warm and dry. Chest pain is denied. Respiratory: Airway is patent Respiratory effort is even, unlabored, Respiratory pattern is regular, symmetrical. GI: No signs and/or symptoms were reported involving the gastrointestinal system. : No signs and/or symptoms were reported regarding the genitourinary system. EENT: No signs and/or symptoms were reported regarding the EENT system. Derm: Skin is intact, is healthy with good turgor, Skin is dry, Skin is normal, Skin temperature is warm. Musculoskeletal: Circulation, motion, and sensation intact. Range of motion: intact in all extremities, Swelling absent. 07:52 Reassessment: at bedside examining pt at this time. sg Vital Signs: 07:42 BP 115 / 56; Pulse 87; Resp 16; Temp 97.7(TE); Pulse Ox 98% on R/A; Weight 101.6 kg; ss Height 5 ft. 10 in. (177.80 cm); Pain 10/10; 07:42 Body Mass Index 32.14 (101.60 kg, 177.80 cm) ED Course: 07:20 Patient arrived in ED. dl4 07:21 Shine Shipman MD is Private Physician. dl4 07:36 Ant Daniel MD is Attending Physician. ma2 07:36 Harsh Torres, CALLUM is Primary Nurse. sg 07:41 Triage completed. ss 07:42 Arm band placed on left wrist. ss 07:55 Patient has correct armband on for positive identification. Bed in low position. Call sg light in reach. Side rails up X2. Pulse ox on. NIBP on. 08:11 Awaiting for x-ray. sg 08:25 Hip Right 2 View XRAY In Process Unspecified. EDMS 08:55 No provider procedures requiring assistance completed. Patient did not have IV access sg during this emergency room visit. Administered Medications: 08:11 Drug: TORadol 60 mg Route: IM; Site: right ventrogluteal; sg 08:45 Follow up: Response: No adverse reaction; Pain is decreased sg Outcome: 08:41 Discharge ordered by . ma2 08:55 Discharged to home ambulatory. sg 08:55 Condition: good 08:55 Discharge instructions given to patient, Instructed on discharge instructions, follow up and referral plans. safety practices, Demonstrated understanding of instructions, follow-up care, medications, Prescriptions given X 2. 08:56 Patient left the ED. ss Signatures: Dispatcher [employer] EDMS Harsh Torres, RN RN Carolyn Alves RN RN ss Ant Daniel MD MD ma2 Angel Shnie dl4
--- NOTE | 2018-05-09 08:42 | EDPHYS ---
Physician Documentation [facility] Name: Marcelino Enriquez Age: 72 yrs Sex: Male : 1945 Arrival Date: 05/09/2018 Time: 07:20 Bed 19 Private MD: Shine Shipman ED Physician Ant Daniel HPI: 05/09 08:38 This 72 yrs old Black Male presents to ER via Ambulatory with complaints of Back Pain. ma2 08:38 The patient presents with pain that is chronic. The symptoms are located in the low ma2 back. Onset: The symptoms/episode began/occurred gradually, 5 week(s) ago. Associated signs and symptoms: Pertinent positives: Pertinent negatives: abdominal pain, chest pain, constipation, dysuria, fever, headache, hematuria, incontinence, nausea, numbness, tingling, vomiting, weakness. The problem was sustained when lifting. Modifying factors: The patient symptoms are alleviated by remaining still, the patient symptoms are aggravated by bending, coughing. Severity of symptoms: At their worst the symptoms were moderate, in the emergency department the symptoms are unchanged. The patient has experienced similar episodes in the past. Historical: - Allergies: 07:42 Darvon; ss - PMHx: 07:42 Diabetes - IDDM; Gout; High Cholesterol; Hypertension; ss - PSHx: 07:42 back sx; ss - Immunization history:: Adult Immunizations up to date. - Social history:: Smoking status: Patient/guardian denies using tobacco, Patient/guardian denies using alcohol, street drugs, The patient lives with family. - Ebola Screening: : Patient denies exposure to infectious person Patient denies travel to an Ebola-affected area in the 21 days before illness onset. - Family history:: not pertinent. ROS: 08:38 Constitutional: Negative for fever, chills, and weight loss, Cardiovascular: Negative ma2 for chest pain, palpitations, and edema, Respiratory: Negative for shortness of breath, cough, wheezing, and pleuritic chest pain, Abdomen/GI: Negative for abdominal pain, nausea, diarrhea, and constipation, MS/Extremity: Negative for injury and deformity, Skin: Negative for injury, rash, and discoloration, Neuro: Negative for headache, weakness, numbness, tingling, and seizure. 08:38 Back: Positive for pain with movement, Negative for injury or acute deformity, decreased range of motion, pain at rest, radiated pain, acute changes. 08:38 All other systems are negative. Exam: 08:38 Constitutional: This is a well developed, well nourished patient who is awake, alert, ma2 and in no acute distress. ENT: Nares patent. No nasal discharge, no septal abnormalities noted. Tympanic membranes are normal and external auditory canals are clear. Oropharynx with no redness, swelling, or masses, exudates, or evidence of obstruction, uvula midline. Mucous membranes moist. Chest/axilla: Normal chest wall appearance and motion. Nontender with no deformity. No lesions are appreciated. Cardiovascular: Regular rate and rhythm with a normal S1 and S2. No gallops, murmurs, or rubs. Normal PMI, no JVD. No pulse deficits. Respiratory: Lungs have equal breath sounds bilaterally, clear to auscultation and percussion. No rales, rhonchi or wheezes noted. No increased work of breathing, no retractions or nasal flaring. Abdomen/GI: Soft, non-tender, with normal bowel sounds. No distension or tympany. No guarding or rebound. No evidence of tenderness throughout. MS/ Extremity: Pulses equal, no cyanosis. Neurovascular intact. Full, normal range of motion. Neuro: Awake and alert, GCS 15, oriented to person, place, time, and situation. Cranial nerves II-XII grossly intact. Motor strength 5/5 in all extremities. Sensory grossly intact. Cerebellar exam normal. Normal gait. 08:38 Back: pain, that is moderate, ROM is normal, normal spinal alignment noted, vertebral tenderness, is not appreciated, muscle spasm, is appreciated in the right low back, Straight leg raises: left lower extremity does not illicit pain, right lower extremity illicits pain, at 45 degrees. Vital Signs: 07:42 BP 115 / 56; Pulse 87; Resp 16; Temp 97.7(TE); Pulse Ox 98% on R/A; Weight 101.6 kg; ss Height 5 ft. 10 in. (177.80 cm); Pain 10/10; 07:42 Body Mass Index 32.14 (101.60 kg, 177.80 cm) ss MDM: 07:36 Patient medically screened. ma2 08:38 Differential diagnosis: chronic back pain, Fatigue Osteoarthritis Scoliosis sprain. ma2 Data reviewed: vital signs, nurses notes. Counseling: I had a detailed discussion with the patient and/or guardian regarding: the historical points, exam findings, and any diagnostic results supporting the discharge/admit diagnosis, the presence of at least one elevated blood pressure reading (>120/80) during this emergency department visit, the need for outpatient follow up. Response to treatment: the patient's symptoms have markedly improved after treatment. ED course: will need PCP for MRI. 05/09 08:00 Order name: Hip Right 2 View XRAY ma2 Administered Medications: 08:11 Drug: TORadol 60 mg Route: IM; Site: right ventrogluteal; sg 08:45 Follow up: Response: No adverse reaction; Pain is decreased sg Disposition: 05/09/18 08:41 Discharged to Home. Impression: Low back pain. - Condition is Stable. - Discharge Instructions: Back Pain, Adult. - Prescriptions for Tylenol- Codeine #3 300-30 mg Oral Tablet - take 2 tablet by ORAL route every 6 hours As needed; 30 tablet. Cyclobenzaprine 10 mg Oral Tablet - take 1 tablet by ORAL route every 8 hours As needed; 30 tablet. - Medication Reconciliation Form, Thank You Letter, Antibiotic Education, Prescription Opioid Use form. - Follow up: Private Physician; When: Tomorrow; Reason: Continuance of care. Signatures: Dispatcher [employer] EDHarsh Tabor RN RN Carolyn Alves RN RN ss Ant Daniel MD MD ma2 Corrections: (The following items were deleted from the chart) 08:56 08:41 05/09/2018 08:41 Discharged to Home. Impression: Low back pain. Condition is ss Stable. Forms are Medication Reconciliation Form, Thank You Letter, Antibiotic Education, Prescription Opioid Use. Follow up: Private Physician; When: Tomorrow; Reason: Continuance of care. ma2
--- NOTE | 2018-05-09 09:08 | RAD REPORT ---
EXAM DESCRIPTION: RAD - Hip Right 2 View - 05/09/2018 8:25 am CLINICAL HISTORY: PAIN COMPARISON: No comparisons FINDINGS: Mild arthritic changes affect the right hip. No fracture, dislocation or AVN findings. Mil d vascular calcifications noted.
== END 2018-05-09 08:56 | disposition home or self-care (01) ==
LOC: ER 07:17
DX: M54.5 Low back pain (principal); E11.9 Type 2 diabetes mellitus without complications; M10.9 Gout, unspecified; E78.00 Pure hypercholesterolemia, unspecified; I10 Essential (primary) hypertension; Z79.4 Long term (current) use of insulin
CPT/HCPCS: 96372; 99284

== ENCOUNTER 2021-05-11 15:42 | Emergency (ER) | payer OTHER ==
--- OUTSIDE RECORDS SUMMARY | 2021-05-11 15:47 | XMS REPORT | Continuity of Care Document ---
:1945 Author Organization [facility] t Address [address] [place] [address] Care Team Providers Name Role Phone Ernie Salinas MD Primary Care Physician Chris Avendaño MD Attending Clinician Ernie Salinas MD Attending Clinician Elizabeth Martinez Attending Clinician Unavailable Tushar NOLEN Attending Clinician Unavailable Wolf HOWARD Attending Clinician Pradeep FINNEGAN Attending Clinician Unavailable Charisse Hilario MD Attending Clinician Raphael Phelan MD Attending Clinician Misbah Calvert MD Attending Clinician Jacob Zarco MD Attending Clinician Anahy GRIFFITH Attending Clinician Ayden HOWARD Attending Clinician Jojo RN Attending Clinician Unavailable Rosalba Ramirez Attending Clinician Juan Pablo RN Attending Clinician Unavailable Provider Attending Clinician Unavailable Nathan RN Attending Clinician Unavailable Andrew RN Attending Clinician Unavailable [facility] Attending Clinician Unavailable David Jimenez MD Attending Clinician Ernie Gutierrez DO Attending Clinician TAPAN Admitting Clinician Unavailable Payers Payer Name Policy Type Policy Number Effective Date Expiration Date S payal Problems Condition Condition Condition Status Onset Resolution Last Treating Co mments Source Name Details Category Date Date Treatment Clinician Date Intractabl Intractabl Disease Active 2020-04 M ethodi e pain e pain 05-09 st 00:00: Hospita 00 l 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 12-18 mellitus mellitus 00:00: Hospit a without without 00 l complicati complicati on on 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 Left femoral Acute deep Acute deep Disease Active 2018-04 M ethodi vein vein 04-10 thrombosis thrombosis 00:00: Ho spita (DVT) of (DVT) of 00 l left lower left lower extremity extremity Prostate Prostate Disease Active [facility] cancer cancer 06-28 00:00: Hospita 00 l Chemothera Chemothera Disease Active M ethodi py-induced py-induced 06-28 neutropeni neutropeni 00:00: Ho spita a a 00 l Peripheral Peripheral Disease Active M ethodi edema edema 216 st 00:00: Hospita 00 l Chronic Chronic Disease Active [facility] kidney kidney 09-08 disease, disease, 00:00: Hospit a stage III stage III 00 l (moderate) (moderate) 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-08 diogram diogram 00:00: Hospita 00 l Onychomyco Onychomyco Disease Active M ethodi sis sis 6 st 00:00: Hospita 00 l 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 6 st on on 00:00: Hospita 00 l Elevated Elevated Disease Active 2012-04 [facility] di prostate prostate 0-18 st specific specific 00:00: Hospit a antigen antigen 00 l (PSA) (PSA) Degenerati Degenerati Disease Active M ethodi on of on of 2-24 st interverte interverte 00:00: Ho spita bral disc bral disc 00 l of lumbar of lumbar region region Diabetes Diabetes Disease Active [facility] di mellitus mellitus 2 st 00:00: Hospita 00 l Essential Essential Disease Active Met [facility] hypertensi hypertensi 2 st on on 00:00: Hospita 00 l History of History of Disease Active M ethodi gout gout 06-03 st 00:00: Hospita 00 l Malignant Malignant Disease Active Met [facility] neoplasm neoplasm 2 st of of 00:00: Hospita prostate prostate 00 l Mixed Mixed Disease Active [facility] hyperlipid hyperlipid 2 st emia emia 00:00: Hospita 00 l Mixed Mixed Problem Active [facility] hyperlipid hyperlipid [facility] - emia emia [facility] Essential Essential Diagnosis Active [facility] hypertensi hypertensi [facility]e kes - on on [facility]ics residential residential Problem Active [facility] current current [facility] use of use of [facility] insulin insulin l Outpati ent Clinics 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 [facility] gout gout [facility] without without l tophus, tophus, Outpati unspecifie unspecifie en t d site d site Clinics Type 2 Type [address] [facility] diabetes diabetes [facility] - mellitus mellitus Mem[facility] a without without l complicati complicati Ou tpati ons ons ent Clinics 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 [facility] - disease disease [facility] involving involving l quechan quechan Outpati coronary coronary ent artery of artery of Clin ics quechan quechan heart heart without without angina angina pectoris pectoris 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 Meme kes - [facility] Chronic Chronic Problem Active [facility] kidney kidney [facility] - disease, disease, [facility] a stage 4 stage 4 l (severe) (severe) Outpat i ent Clinics Gastroesop Gastroesop Problem Active [facility] hageal hageal [facility] - reflux reflux [facility] disease disease l without without Outpati esophagiti esophagiti en t s s Clinics 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 [facility] - disease of disease of Me moria quechan quechan l artery artery Outpati with with ent stable stable Clinics angina angina pectoris, pectoris, unspecifie unspecifie d whether d whether quechan or quechan or transplant transplant ed heart ed heart Stage 3 Stage 3 Diagnosis Active [facility] chronic chronic [facility] kidney kidney [facility] disease disease l Outpati ent Clinics Acute gout Acute gout Problem Active [facility] of right of right [facility] - ankle, ankle, [facility] unspecifie unspecifie l d cause d cause Outpati ent Clinics 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 [facility] - gout of gout of [facility] right foot right foot l without without Outpati tophus tophus ent Clinics Right hip Right hip Diagnosis Active [facility] pain pain [facility] Allergies, Adverse Reactions, Alerts Allergy Allergy Status Severity Reaction(s) Onset Inactive Treating Comm ents Source Name Type Date Date Clinician Cayetano Shahid Active Hives "Medicati Met hodi jay ty to 09-08 on name: st adverse 00:00: DARVON" Hospita reaction 00 l s to drug Darvon Adverse Active rash [facility] Reaction [facility] Family History Family Member Diagnosis Comments Start Date Stop Date Source Natural brother Diabetes [facility] Natural brother Hypertension [facility] Natural brother Kidney disease [facility] Natural father Hypertension [facility] Natural father Stroke [facility] mother Cancer [facility] Social History Social Habit Start Date Stop Date Quantity Comments Source Exposure to Unable to assess [address] (event) Alcohol intake 2021-03-29 2021-03-29 Current [facility] 00:00:00 00:00:00 non-drinker of Hospital alcohol (finding) Tobacco use and 2015-09-09 2015-09-09 Smokeless tobacco [facility] exposure 00:00:00 00:00:00 non-user Hospital Sex Ass[birth year] At [birth year] [facility] 00:00:00 00:00:00 Hospital Smoking Status Start Date Stop Date Source Never smoked tobacco [facility] Medications Ordered Filled Start Stop Current Ordering Indication Dosage Frequency Signature Comments Components Source Medication Medication Date Date Medication? Clinician (SIG) Name Name furosemide Yes TAKE 1 Meth[facility] di (LASIX) 20 1-[address] mg tablet 00:00: MOUTH Hospita 00 EVERY DAY l allopurinoL Yes TAKE 1 Meth bianka (ZYLOPRIM) 1-[address] 100 MG 00:00: MOUTH Hospita tablet 00 EVERY DAY l tamsulosin Yes .4mg QD Take 1 Metho di (FLOMAX) 1-[address] 0.4 mg 00:00: (0.4 mg Hospita capsule 00 total) by l mouth daily. predniSONE 2021- No 5mg Q.5D Take 5 mg M ethodi (DELTASONE) -05 01-05 by mouth 2 s t 5 mg tablet 08:55: 00:00 (two) Hosp isela 41 :00 times a l day. abiraterone 2021- No 1000mg QD Take 1,000 [facility] (Zytiga) 1-05 01-[address] 250 mg 08:54: 00:00 mouth Hospita chemo 20 :00 daily. l tablet abiraterone 2021- Yes [id number] 1000mg QD Take 4 [facility] (Zytiga) 1-05 02-[address] 250 mg 00:00: 05:59 (1,000 mg Hospi ta chemo 00 :00 total) by l tablet mouth daily for 30 days. predniSONE 2021- Yes [id number] 5mg Q.5D Take 1 [facility] (DELTASONE) 1-05 02-05 tablet (5 st 5 mg tablet 00:00: 05:59 mg total) Hospita 00 :00 by mouth 2 l (two) times a day for 30 days. Start with Zytiga (abiratero ne) bimatoprost 2020-04 Yes 1[drp] QD Administer [facility] (LUMIGAN) 2-[address] 0.01 % 15:06: both eyes Hospit a ophthalmic 08 nightly. l drops insulin 2020-04 Yes 25U QD Inject 25 Metho di degludec 2-[address] (TRESIBA) 15:06: under the Hos alessia 200 unit/mL 08 skin daily l (3 mL) before subcutaneou breakfast. s pen gabapentin 2020-04- No 300mg QD Take 300 M ethodi (NEURONTIN) 2-20 12-[address] 300 mg 15:06: 00:00 mouth Hospita capsule 08 :00 nightly as l needed. amLODIPine 2020-04 Yes 10mg QD Take 2 Metho di (NORVASC) 5 2-[address] mg tablet 00:00: (10 mg Hospit a 00 total) by l mouth daily. HYDROcodone 2020-04- No [id number] 1{tbl} Q6H Take 1 [facility]i -acetaminop 2-13 01-[address] hen ([place]) 00:00: 05:59 mouth Hosp isela 10-325 mg 00 :00 every 6 l per tablet (six) hours as needed for moderate pain for up to 30 days .acute pain, chronic pain. Max Daily Amount: 4 tablets naloxegoL 2020-04- No 25mg QD Take 1 Metho di (MOVANTIK) 2-13 12-20 tablet (25 st 25 mg 00:00: 00:00 mg total) Hospit a tablet 00 :00 by mouth l tablet daily before breakfast for 7 days. polyethylen 2020-04- No 17g Q.5D Take 17 g Methodi e glycol 2-12 12-[address] (MIRALAX) 00:00: 00:00 (two) Hospit a 17 gram 00 :00 times a l packet day for 30 days. sennosides- 2020-04- No 1{tbl} Q.5D Take 1 M ethodi docusate 2-12 12-[address] sodium 00:00: 00:00 mouth 2 Hospita (SENOKOT-S) 00 :00 (two) l 8.6-50 mg times a per tablet day for 30 days. atorvastati 2020-04 Yes TAKE 1 Meth bianka n (LIPITOR) 2-[address] 20 mg 00:00: MOUTH Hospita tablet 00 EVERY DAY l tamsulosin 2020-04- No TAKE 1 Meth bianka (FLOMAX) [address] 0.4 mg 00:00: 00:00 MOUTH Hospita capsule 00 :00 EVERY DAY l methocarbam 2020-04- No 500mg Q.[id number] Take 1 Methodi oL 05-21- [id number] tablet st (Robaxin) 00:00: 05:59 3D (500 mg Hosp isela 500 MG 00 :00 total) by l tablet mouth 3 (three) times a day as needed for muscle spasms for up to 10 days. Eliquis 5 2020-04 Yes [id number] TAKE 1 M ethodi mg tablet 1-[address] 00:00: MOUTH Hospita 00 TWICE A l DAY HYDROcodone 2020-04- [place] [id number] 1{tbl} Q6H Take 1 Methodi -acetaminop 1-04 12-[address] hen ([employer]) 00:00: 00:00 mouth Hosp isela 10-325 mg 00 :00 every 6 l per tablet (six) hours as needed for moderate pain for up to 30 days .acute pain, chronic pain. Max Daily Amount: 4 tablets metoprolol 2020-04 Yes TAKE 1 Metho di succinate 1-[address] XL 00:00: MOUTH Hospita (TOPROL-XL) 00 TWICE A l 100 mg 24 DAY hr tablet HYDROcodone 2020- No [id number] 1{tbl} Q6H Take 1 [facility]i -acetaminop 9-28 10-[address] hen sendwithus) 00:00: 04:59 mouth Hosp isela 10-325 mg 00 :00 every 6 l per tablet (six) hours as needed for moderate pain for up to 30 days .chronic pain. Max Daily Amount: 4 tablets HYDROcodone 2020- No [id number] 1{tbl} Q6H Take 1 Methodi -acetaminop 9-27 09-[address] hen ([employer]) 21:50: 00:00 mouth Hosp isela 10-325 mg 00 :00 every 6 l per tablet (six) hours as needed for moderate pain .acute pain. HYDROcodone 2020- No [id number] 1{tbl} Q6H Take 1 Methodi -acetaminop 9-27 09-[address] hen ([employer]) 00:00: 00:00 mouth Hosp isela 10-325 mg 00 :00 every 6 l per tablet (six) hours as needed for moderate pain for up to 30 days .chronic pain. Max Daily Amount: 4 tablets telmisartan 2021- No 80mg QD Take 1 Met hodi (Micardis) 11-24 08-18 tablet (80 st 80 MG 00:00: 04:59 mg total) Hospit a tablet 00 :00 by mouth l daily. gabapentin No 300mg QD Take 1 Met hodi (NEURONTIN) 11-[address] 300 mg 00:00: 00:00 (300 mg Hospita capsule 00 :00 total) by l mouth nightly. allopurinoL 2021- No TAKE 1 Met hodi (ZYLOPRIM) 11-[address] 100 MG 00:00: 00:00 MOUTH Hospita tablet 00 :00 EVERY DAY l HYDROcodone 2020- No [id number] 1{tbl} Q6H Take 1 Methodi -acetaminop 7-10 08-10 tablet by [employer]) 00:00: 04:59 mouth Hosp isela 10-325 mg 00 :00 every 6 l per tablet (six) hours as needed for moderate pain for up to 30 days .chronic pain. Max Daily Amount: 4 tablets amLODIPine 2020- No TAKE 2 Meth bianka (NORVASC) 5 6-25 12-20 TABLETS BY s t mg tablet 00:00: 00:00 MOUTH Hospit a 00 :00 EVERY DAY l atorvastati 2020- No TAKE 1 Met hodi n (LIPITOR) 6-19 12-[address] 20 mg 00:00: 00:00 MOUTH Hospita tablet 00 :00 EVERY DAY l tamsulosin 2020- No TAKE 1 Meth bianka (FLOMAX) 6-17 12-[address] 0.4 mg 00:00: 00:00 MOUTH Hospita capsule 00 :00 EVERY DAY l HYDROcodone 2020- No [id number] 1{tbl} Q6H Take 1 Methodi -acetaminop 6-16 07-09 tablet by [employer]) 00:00: 00:00 mouth Hosp isela 10-325 mg 00 :00 every 6 l per tablet (six) hours as needed for moderate pain for up to 30 days .chronic pain. Max Daily Amount: 4 tablets HYDROcodone 2020-2020- No [id number] 1{tbl} Q6H Take 1 Methodi -acetaminop 5-12 06-[address] hen ([place]) 00:00: 00:00 mouth Hosp isela 10-325 mg 00 :00 every 6 l per tablet (six) hours as needed for moderate pain for up to 30 days .chronic pain. Max Daily Amount: 4 tablets HYDROcodone 2020-0 2020- No [id number] 1{tbl} Q4H Take 1 Methodi -acetaminop 4-30 05-[address] hen ([place]) 00:00: 00:00 mouth Hosp isela 5-325 mg 00 :00 every 4 l per tablet (four) hours as needed for moderate pain for up to 30 days .chronic pain. Max Daily Amount: 6 tablets hydrALAZINE Yes TAKE 1 Meth bianka (APRESOLINE 4-[address] ) 25 MG 00:00: MOUTH Hospita tablet 00 THREE l TIMES A DAY metoprolol 2020- No TAKE 1 Meth bianka succinate 4-25 -[address] XL 00:00: 00:00 MOUTH Hospita (TOPROL-XL) 00 :00 TWICE A l 100 mg 24 DAY hr tablet predniSONE 2020- No 5mg Q.5D Take 5 mg M ethodi (DELTASONE) 07-07-30 by mouth 2 s t 5 mg tablet 09:11: 00:00 (two) Hosp isela 03 :00 times a l day. allopurinoL 2020- No TAKE 1 Met hodi (ZYLOPRIM) 3-30 08-[address] 100 MG 00:00: 00:00 MOUTH Hospita tablet 00 :00 EVERY DAY l predniSONE 2020- No TAKE 1 Meth bianka (DELTASONE) 30 06-[address] 5 mg tablet 00:00: 04:59 MOUTH 2 Ho spita 00 :00 (TWO) l TIMES A DAY furosemide 2021- No 20mg Q.5D Take 20 mg [facility] (LASIX) 20 3-21 01-[address] mg tablet 00:00: 00:00 (two) Hospit a 00 :00 times a l day as needed. allopurinoL 2020- No TAKE 1 Met hodi (ZYLOPRIM) 3-[address] 100 MG 00:00: 00:00 MOUTH Hospita tablet 00 :00 EVERY DAY l HYDROcodone 2020- No [id number] 1{tbl} Q4H Take 1 Methodi -acetaminop 3-25 07-[address] hen ([employer]) 00:00: 00:00 mouth Hosp isela 5-325 mg 00 :00 every 4 l per tablet (four) hours as needed for moderate pain for up to 30 days .chronic pain. Max Daily Amount: 6 tablets hydroCHLORO 2020- No 12.5mg QD Take 12.5 Methodi thiazide 06-08 03- mg by st (HYDRODIURI 13:23: 00:00 mouth Hosp isela L) 12.5 MG 37 :00 daily. l tablet simethicone No 160mg Q6H Chew 2 Me thodi (MYLICON) 06-08- tablets st 80 MG 00:00: 04:59 (160 mg Hospita chewable 00 :00 total) l tablet every 6 (six) hours as needed for flatulence for up to 30 days. Tresiba 2020- No INJECT SUB Met hodi FlexTouch 06-[address] U-200 200 00:00: 00:00 BEFORE Hospi ta unit/mL (3 00 :00 EACH MEALS l mL) insulin DAILY pen pantoprazol 2020- No 40mg QD Take 1 Met hodi e 2- 03-13 tablet (40 st (Protonix) 00:00: 05:59 mg total) H ospita 40 MG EC 00 :00 by mouth l tablet daily for 30 days. HYDROcodone 2020- No [id number] 1{tbl} Q4H Take 1 Methodi -acetaminop 2- 03-[address] hen ([employer]) 00:00: 00:00 mouth Hosp isela 5-325 mg 00 :00 every 4 l per tablet (four) hours as needed for moderate pain for up to 30 days .chronic pain. Max Daily Amount: 6 tablets HYDROcodone 2020- No [id number] 1{tbl} Q4H Take 1 Methodi -acetaminop 05-[address] hen ([place]) 00:00: 00:00 mouth Hosp isela 5-325 mg 00 :00 every 4 l per tablet (four) hours as needed for moderate pain for up to 30 days .chronic pain. Max Daily Amount: 6 tablets fentaNYL 2019-04 No Methodi (DURAGESIC) 03-10 st 50 mcg/hr 00:00: 00:00 Hospita 00 :00 l atorvastati 2019-04 No 20mg QD Take 1 Met hodi n (LIPITOR) 05-31 tablet (20 s t 20 mg 00:00: 00:00 mg total) Hospit a tablet 00 :00 by mouth l daily. Default OP ins tamsulosin 2019-04 No .4mg QD Take 1 Meth bianka (FLOMAX) 05-31-[address] 0.4 mg 00:00: 00:00 (0.4 mg Hospita capsule 00 :00 total) by l mouth daily. allopurinoL 2019-04- No 100mg QD Take 1 Me thodi (ZYLOPRIM) 05-31 03-[address] 100 MG 00:00: 00:00 (100 mg Hospita tablet 00 :00 total) by l mouth daily. apixaban 2019-04- No [id number] 5mg Q.5D Take 1 M ethodi (ELIQUIS) 5 0-09 18- tablet (5 st mg tablet 00:00: 00:00 mg total) Ho spita 00 :00 by mouth 2 l (two) times a day. hydrALAZINE 2019-04 No 25mg Q.[id number] Take 1 [facility] (APRESOLINE 0-06 04-25 [id number] tablet (25 st ) 25 MG 00:00: 00:00 3D mg total) Hosp isela tablet 00 :00 by mouth 3 l (three) times a day. pen needle, 2020- No USE WITH Deanna sissy diabetic 32 803-[address] gauge x 00:00: 00:00 PENS Hospita /32" 00 :00 lancets l needle misc Use 3 times daily as needed metoprolol 2020- No TAKE 1 Meth bianka succinate 12-01 04-[address] XL 00:00: 00:00 MOUTH Hospita (TOPROL-XL) 00 :00 TWICE A l 100 mg 24 DAY hr tablet OneTouch 2020- No USE TO Method i Verio test 12-[address] strips 00:00: 00:00 TIMES A Hospita strip test 00 :00 DAY l strips Tresiba 2020- No INJECT SUB Met hodi FlexTouch 11-[address] U-200 200 00:00: 00:00 BEFORE Hospi ta unit/mL (3 00 :00 EACH MEALS l mL) insulin DAILY pen Victoza 2020- No 1.8mg QD Inject 0.3 Me thodi 3-Tim 0.6 11-06 05-25 mL (1.[address] mg/0.1 mL 00:00: 00:00 total) Hospi ta (18 mg/3 00 :00 under the l mL) pen skin daily injector with breakfast. furosemide 2020- No 20mg Q.5D Take 1 Meth bianka (LASIX) 20 09-14 tablet (20 st mg tablet 00:00: 00:00 mg total) Ho spita 00 :00 by mouth 2 l (two) times a day. amLODIPine 2020- No TAKE 2 Meth bianka (NORVASC) 5 09-11 06-25 TABLETS BY s t mg tablet 00:00: 00:00 MOUTH Hospit a 00 :00 EVERY DAY l telmisartan 2020- No 80mg QD Take 1 Met hodi (Micardis) 08-14 tablet (80 st 80 MG 00:00: 00:00 mg total) Hospit a tablet 00 :00 by mouth l daily. Tresiba Tresiba Yes Shine [address] FlexTouch FlexTouch 01-01 [facility] - 00:00: [facility]oria 00 l Outpat[facility] ent Clinics Victoza Victoza 2019- No Shine 1.[address] 01-01 07- [facility] - 00:[facility]: 00:00 [facility]oria 00 :[facility] l Outpat[facility] ent Clinics Lisinopril Lisinopril 2017- Yes Shine [address] [facility] [address] 7- [facility] - 00:[facility]: [facility] Niaspan Niaspan 2017-0 2019- No Shine [address] 7-26 05- Ramonita at bedtime [facility] - 00:00: 00:00 [facility]oria 00 :00 l Outpat[facility] ent Clinics Furosemide Furosemide Yes Shine [address] [facility] Allopurinol Allopurinol Yes Shine [address] [facility] Calcitriol Calcitriol Yes Shine [address] [facility] Atorvastati Atorvastati Yes Shine [address] n Calcium n Calcium [facility] HydrALAZINE HydrALAZINE Yes Shine [address] HCl HCl Ramonita with food [facility] Metoprolol Metoprolol Yes Shine [address] Tartrate Tartrate Ramonita with food L ukes - [facility] l [facility] ent Clinics Metoprolol Metoprolol Yes Shine [address] Succinate Succinate [facility]onita [facility] - [facility] ER [facility] Tamsulosin Tamsulosin Yes Shine [address] HCl HCl [facility] Amlodipine Amlodipine Yes Shine [address] Besylate Besylate [facility] Immunizations Ordered Immunization Filled Immunization Date Status Commen ts Source Name Name Remdesivir 2020-06-08 Completed [facility] 00:00:00 [facility] Remdesivir 2020-06-07 Completed [facility]que 00:00:00 [facility] Remdesivir 2020-06-06 Completed [facility]que 00:00:00 [facility] Remdesivir 2020-06-05 Completed Mosque 00:00:00 [facility] PFIZER COVID-19 MRNA 2020-05-20 Completed Meth odist VACCINATION 00:00:00 [facility] PFIZER COVID-19 MRNA 2020-04-29 Completed Meth odist VACCINATION 00:00:00 [facility] FLUCELVAX QUAD PF 2020-03-[address] 00:00:00 Hospital FLUZONE HIGH-DOSE PF 2020-01-09 Completed Meth odist 00:00:00 [facility] FLUZONE HIGH-DOSE PF 2019-02-02 Completed Meth odist 00:00:00 Hospital FLUZONE HIGH-DOSE PF 2018-01-08 Completed Meth odist 00:00:00 Hospital FLUZONE HIGH-DOSE PF 2016-02-15 Completed Meth odist 00:00:00 Hospital Pneumococcal 2016-02-15 Completed [facility] 2013-12-05 Completed Meth odist 00:00:00 [facility] Influenza Split 2011-03-07 Completed Mosque 00:00:00 [facility] Pneumococcal 2009-12-08 Completed [facility]que Polysaccharide 00:00:00 [facility] Td 2008-10-06 Completed Mosque 00:00:00 [facility] Influenza Trivalent 2007-12-06 Completed Metho dist 00:00:00 [facility] Pneumococcal 2007-12-06 Completed [facility]que Polysaccharide 00:00:00 Hospital Vital Signs Vital Name Observation Time Observation Value Comments Source Systolic blood 2021-03-29 20:57:00 187 mm[Hg] [facility] pressure Diastolic blood 2021-03-29 20:57:00 82 mm[facility]Hg[facility] pressure Heart rate 2021-03-29 20:57:00 76 /min [facility] Body height 2021-03-29 20:57:00 193 cm [facility] Body weight 2021-03-29 20:57:00 99.791 kg [facility] BMI 2021-03-29 20:57:00 26.78 kg/m2 [facility] Body temperature 2021-03-22 18:00:00 36.5 Nicole [facility] Respiratory rate 2021-03-22 18:00:00 20 /min [facility] Oxygen saturation in 2021-03-22 18:00:00 98 /min [facility] Arterial blood by Pulse oximetry Procedures Procedure Date / Time Performing Clinician Source Performed CBC WITH PLATELET AND 2021-04-12 16:59:00 Leda Bloom [facility] DIFFERENTIAL PROSTATE SPECIFIC ANTIGEN 2021-04-12 16:59:00 Wolf [facility] COMPREHENSIVE METABOLIC 2021-04-12 16:59:00 [facility] PANEL POC GLUCOSE 2021-03-22 18:35:00 [facility] POC GLUCOSE 2021-03-22 15:34:00 [facility] POC GLUCOSE 2021-03-22 03:10:00 [facility] POC GLUCOSE 2021-03-21 23:31:00 [facility] POC GLUCOSE 2021-03-21 17:30:00 [facility] POC GLUCOSE 2021-03-21 14:14:00 [facility] POC GLUCOSE 2021-03-21 03:06:00 [facility] POC GLUCOSE 2021-03-20 23:11:00 [facility] POC GLUCOSE 2021-03-20 18:05:00 [facility] POC GLUCOSE 2021-03-20 14:25:00 [facility] BASIC METABOLIC PANEL 2021-03-20 10:43:00 [facility] ESTIMATED GFR 2021-03-20 10:43:00 [facility] POC GLUCOSE 2021-03-20 03:31:00 [facility] POC GLUCOSE 2021-03-19 23:15:00 [facility] DURABLE MEDICAL EQUIPMENT 2021-03-19 19:29:12 [facility] 2021-03-19 18:15:00 [facility] [facility] POC GLUCOSE 2021-03-19 14:08:00 [facility] HEMOGLOBIN 2021-03-19 11:21:00 Hanna Beltrán monica BASIC METABOLIC PANEL 2021-03-19 11:21:00 [facility] ESTIMATED GFR 2021-03-19 11:21:00 [facility] POC GLUCOSE 2021-03-19 03:04:00 [facility] POC GLUCOSE 2021-03-18 23:46:00 [facility] POC GLUCOSE 2021-03-18 18:07:00 [facility] POC GLUCOSE 2021-03-18 15:40:00 [facility] HC COMPLETE BLD COUNT 2021-03-18 08:54:00 [facility] W/AUTO DIFF BASIC METABOLIC PANEL 2021-03-18 08:54:00 [facility] ESTIMATED GFR 2021-03-18 08:54:00 [facility] XR CHEST 1 VW PORTABLE 2021-03-17 23:20:04 [facility] POC GLUCOSE 2021-03-17 22:56:00 [facility] BLOOD CULTURE, AEROBIC & 2021-03-17 21:23:00 [facility] ANAEROBIC POC GLUCOSE 2021-03-17 17:50:00 [facility] POC GLUCOSE 2021-03-17 13:55:00 [facility] HC COMPLETE BLD COUNT 2021-03-17 10:44:00 [facility] W/AUTO DIFF BASIC METABOLIC PANEL 2021-03-17 10:44:00 [facility] ESTIMATED GFR 2021-03-17 10:44:00 [facility] HEMOGLOBIN & HEMATOCRIT 2021-03-17 03:21:00 [facility] POC GLUCOSE 2021-03-17 02:17:00 [facility] OR [place] > 1 HOUR 2021-03-17 02:00:00 [facility] spital ARTERIAL BLOOD GAS, 2021-03-17 01:25[facility]00 [facility] COR[facility] SODIUM LEVEL, SYRINGE 2021-03-17 01:25[facility] POT[facility]YR[facility]E 2021-03-17 01:25[facility]00 [facility] HEM[facility] SYRINGE 2021-03-17 01:25:00 [facility] IONIZED CALCIUM, ARTERIAL 2021-03-17 01:25[facility] SYRINGE 2021-03-17 01:25:00 [facility] MAGNESI[facility] LEV[facility] 2021-03-17 01:25[facility] LACTIC ACID, SYRINGE 2021-03-17 01:25:00 [facility] POTASSIUM, SYRINGE 2021-03-17 00:09:00 [facility] SODIUM LEVEL, SYRINGE 2021-03-17 00:09:00 [facility] ARTERIAL BLOOD GAS, 2021-03-17 00:09:00 [facility] CORRECTED HEMOGLOBIN, SYRINGE 2021-03-17 00:09:00 [facility] IONIZED CALCIUM, ARTERIAL 2021-03-17 00:09[facility] 2021-03-17 00:09[facility]00 [facility] GLUCOSE LEVEL, SYRINGE 2021-03-17 00:09:00 [facility] LACTIC ACID, SYRINGE 2021-03-17 00:09:00 [facility] TRANSFUSE RED BLOOD CELLS 2021-03-16 23:32:00 [facility] Jacob ARTERIAL LINE 2021-03-16 23:02:16 [facility] Jacob TRANSFUSE RED BLOOD CELLS 2021-03-16 22:56:00 [facility] Jacob TRANSFUSE PLATELET 2021-03-16 22:45:00 [facility] PHERESIS Jacob MD AN ELECTIVE 2021-03-16 21:47:00 [facility] ENDOTRACHEAL AIRWAY Jacob FUSION, SPINE, THORACIC, 2021-03-16 21:40:00 Balaji Hensley [facility] USING POSTERIOR TECHNIQUE POC GLUCOSE 2021-03-16 16:37:00 [facility] POC GLUCOSE 2021-03-16 13:55:00 [facility] CBC WITH PLATELET AND 2021-03-16 11:20:00 [facility] DIFFERENTIAL BASIC METABOLIC PANEL 2021-03-16 11:20:00 Vega [facility] ESTIMATED GFR 2021-03-16 11:20:00 Anurag Ferrari [facility] spital POC GLUCOSE 2021-03-16 05:41:00 [facility] ECG PRE/POST OP 2021-03-16 02:05:28 Karol Higginbotham Ho spital TRANSFUSE RED BLOOD CELLS 2021-03-15 23:30:00 [facility] POC GLUCOSE 2021-03-15 23:29:00 [facility] TRANSFUSE RED BLOOD CELLS 2021-03-15 21:35:00 [facility] POC GLUCOSE 2021-03-15 19:09:00 [facility] COVID-19 QUALITATIVE 2021-03-15 18:28:00 [facility] RT-PCR PROTHROMBIN TIME WITH INR 2021-03-15 17:03:00 [facility] PARTIAL THROMBOPLASTIN 2021-03-15 17:03:00 [facility] TIME (PTT) HC COMPLETE BLD COUNT 2021-03-15 17:03:00 [facility] W/AUTO DIFF BASIC METABOLIC PANEL 2021-03-15 17:03:00 [facility] PREPARE RBC 2021-03-15 17:03:00 [facility] spital ANTI XA APIXABAN 2021-03-15 17:03:00 [facility] ospital ESTIMATED GFR 2021-03-15 17:03:00 [facility] SMEAR REVIEW 2021-03-15 17:03:00 [facility] PREPARE PLATELET PHERESIS 2021-03-15 17:03:00 [facility] POC GLUCOSE 2021-03-15 14:34:00 [facility] POC GLUCOSE 2021-03-15 02:54:00 [facility] POC GLUCOSE 2021-03-14 23:27:00 [facility] POC GLUCOSE 2021-03-14 18:28:00 [facility] POC GLUCOSE 2021-03-14 13:46:00 [facility] POC GLUCOSE 2021-03-14 02:04:00 [facility] POC GLUCOSE 2021-03-13 23:50:00 [facility] POC GLUCOSE 2021-03-13 17:44:00 [facility] POC GLUCOSE 2021-03-13 13:44:00 [facility] BASIC METABOLIC PANEL 2021-03-13 10:20:00 [facility] CBC HEMOGRAM 2021-03-13 10:20:00 Tram Morin spital ESTIMATED GFR 2021-03-13 10:20:00 Tram Morin Ho spital POC GLUCOSE 2021-03-13 02:35:00 [facility] POC GLUCOSE 2021-03-13 00:24:00 [facility] XR SPINE SCOLIOSIS 2-3 2021-03-12 21:11:13 Balaji Hensley [facility] VIEWS XR LUMBAR SPINE AP 2021-03-12 21:10:17 Ladan Rodriguez [facility] LATERAL FLEXION AND [place]anche EXTENSION POC GLUCOSE 2021-03-12 18:16:00 [facility] 2021-03-12 13:32:00 [facility] BASIC METABOLIC PANEL 2021-03-12 12:08:00 [facility] CBC HEMOGRAM 2021-03-12 12:08:00 [facility] Ho spital ESTIMATED GFR 2021-03-12 12:08:00 [facility] Ho spital POC GLUCOSE 2021-03-12 11:57:00 [facility] MRI CERVICAL SPINE W WO 2021-03-12 11:39:00 Ladan Rodriguez [facility] CONTRAST [place] MRI THORACIC SPINE W WO 2021-03-12 11:24:00 Ladan Rodriguez [facility] CONTRAST [place] POC GLUCOSE 2021-03-12 02:19:00 [facility] POC GLUCOSE 2021-03-12 00:15:00 [facility] POC GLUCOSE 2021-03-11 17:26:00 [facility] POC GLUCOSE 2021-03-11 13:24:00 [facility] BASIC METABOLIC PANEL 2021-03-11 11:35:00 [facility] HC COMPLETE BLD COUNT 2021-03-11 11:35:00 [facility] W/AUTO DIFF ESTIMATED GFR 2021-03-11 11:35:00 [facility] POC GLUCOSE 2021-03-11 03:00:00 [facility] POC GLUCOSE 2021-03-10 22:58:00 [facility] NM BONE SCAN WHOLE BODY 2021-03-10 20:31:00 [facility] POC GLUCOSE 2021-03-10 17:40:00 [facility] POC GLUCOSE 2021-03-10 15:06:00 [facility] MRI LUMBAR SPINE WO 2021-03-10 14:48:00 [facility] CONTRAST MRI SACRUM AND OR COCCYX 2021-03-10 14:28:00 [facility] WO CONTRAST BASIC METABOLIC PANEL 2021-03-10 10:42:00 [facility] HC COMPLETE BLD COUNT 2021-03-10 10:42:00 [facility] W/AUTO DIFF MAGNESIUM LEVEL 2021-03-10 10:42:00 [facility] PROSTATE SPECIFIC ANTIGEN 2021-03-10 10:42:00 [facility] VITAMIN B12 LEVEL 2021-03-10 10:42:00 [facility] THYROID STIMULATING 2021-03-10 10:42:00 [facility] HORMONE ESTIMATED GFR 2021-03-10 10:42:00 [facility] TRANSFUSE RED BLOOD CELLS 2021-03-10 04:59:00 [facility] POC GLUCOSE 2021-03-10 02:48:00 [facility] TYPE AND SCREEN 2021-03-10 00:05:00 [facility] PREPARE RBC 2021-03-10 00:05:00 [facility] POC GLUCOSE 2021-03-09 23:57:00 [facility] COVID-19 ANTI-SPIKE IGG 2021-03-09 22:43:00 [facility] ANTIBODY TITER HC COMPLETE BLD COUNT 2021-03-09 22:43:00 [facility] W/AUTO DIFF COMPREHENSIVE METABOLIC 2021-03-09 22:43:00 [facility] PANEL MAGNESIUM LEVEL 2021-03-09 22:43:00 [facility] COVID-19 SEROLOGY PATIENT 2021-03-09 22:43:00 [facility] SURVEILLANCE HEMOGLOBIN A1C 2021-03-09 22:43:00 [facility] ESTIMATED GFR 2021-03-09 22:43:00 [facility] SMEAR REVIEW 2021-03-09 22:43:00 [facility] COVID-19 QUALITATIVE 2021-03-09 20:33:00 [facility] RT-PCR POC GLUCOSE 2021-03-09 19:16:00 Merrick Phelan [facility] spital NM XOFIGO THERAPY 2021-02-17 20:15:38 [facility] PROSTATE SPECIFIC ANTIGEN 2021-02-17 19:34:00 [facility] COMPREHENSIVE METABOLIC 2021-02-17 19:34:00 [facility] PANEL HC COMPLETE BLD COUNT 2021-02-17 19:34:00 [facility] W/AUTO DIFF ESTIMATED GFR 2021-02-17 19:34:00 [facility] spital CBC WITH PLATELET AND 2021-02-09 13:31:00 [facility] DIFFERENTIAL RAD ONC COURSE SUMMARY 2021-01-25 21:10:55 Provider, Unknown [facility] NM XOFIGO THERAPY 2021-01-20 17:18:35 [facility] RAD ONC DAILY TREATMENT 2021-01-20 15:50:20 Provider, Unknown [facility] RAD ONC DAILY TREATMENT 2021-01-19 15:38:02 Provider, Unknown [facility] RAD ONC DAILY TREATMENT 2021-01-18 15:42:08 Provider, Unknown [facility] RAD ONC DAILY TREATMENT 2021-01-15 15:16:38 Provider, Unknown [facility] RAD ONC DAILY TREATMENT 2021-01-13 15:13:49 Provider, Unknown [facility] RAD ONC DAILY TREATMENT 2021-01-12 15:15:26 Provider, Unknown [facility] CBC WITH PLATELET AND 2021-01-12 13:28:00 [facility] DIFFERENTIAL RAD ONC DAILY TREATMENT 2021-01-11 15:51:56 Provider, Unknown [facility] RAD ONC DAILY TREATMENT 2021-01-08 20:22:06 Provider, Unknown [facility] RAD ONC DAILY TREATMENT 2021-01-07 20:27:16 Provider, [facility] RAD ONC DAILY TREATMENT 2021-01-06 20:04:21 Provider, [facility] RAD ONC COURSE SUMMARY 2021-01-05 14:45:18 Provider, Unknown [facility] NM XOFIGO THERAPY 2020-12-18 18:09:19 [facility] CBC WITH PLATELET AND 2020-12-08 16:01:00 [facility] DIFFERENTIAL MRI LUMBAR SPINE W WO 2020-12-03 18:40:00 [facility] CONTRAST CT CHEST WO CONTRAST 2020-12-03 17:15:00 [facility] ABDOMEN WO CONTRAST PELVIS WO CONTRAST NM BONE SCAN WHOLE BODY 2020-12-03 16:32:00 [facility] POC GLYCOSYLATED 2020 17:32:00 [facility] HEMOGLOBIN (HGB A1C) PROSTATE SPECIFIC ANTIGEN 2020 [facility]:18[facility] XOFIGO [facility]ERAP[facility] 2020-11-17 17:41:00 [facility] CBC WITH PLATELET AND 2020-11-09 14:44:00 [facility] DIFFERENTIAL NM XOFIGO THERAPY 2020-10-15 17:09:00 [facility] CBC WITH PLATELET AND 2020-10-02 13:46:00 [facility] DIFFERENTIAL COMPREHENSIVE METABOLIC 2020-10-02 13:46:00 [facility] PANEL PROSTATE SPECIFIC ANTIGEN 2020-10-02 13:46:00 [facility] NM XOFIGO THERAPY 2020-09-15 15:55:00 [facility] PROSTATE SPECIFIC [facility]TIGEN 2020-09-01 13:53:00 [facility] COMPREHENSIVE METABOLIC 2020-09-01 13:53:00 Wolf [facility] PANEL CBC WITH PLATELET AND 2020-09-01 13:53:00 [facility]FFER[facility] ESTIM[facility] GFR 2020-09-01 13:53:00 Leda Bloom spital MANUAL DIFFERENTIAL 2020-09-01 13:53:00 Wolf [facility] TESTOSTERONE 2020-07-17 13:17:00 Leda Bloom spital NM BONE SCAN WHOLE BODY 2020-06-24 [facility]:59[facility] 2020-06-24 16:19:00 Madeleine Bloomisha [facility] ABDOMEN WO CONTRAST PELVIS WO CONTRAST PROSTATE SPECIFIC ANTIGEN 2020-06-17 15:58:00 Wolf [facility] POC GLUCOSE 2020-06-08 17:41:00 Merrick Phelan spital POC GLUCOSE 2020-06-08 13:57:00 Merrick Phelan spital D-DIMER 2020-06-08 12:37:00 Merrick Phelan spital C-REACTIVE PROTEIN 2020-06-08 10:01:[address] [facility] D-DIMER 2020-06-08 10:01:00 Merrick Phelan spital FERRITIN LEVEL 2020-06-08 10:01:00 Merrick Phelan spital INTERLEUKIN 6 2020-06-08 10:01:00 Merrick Phelan Ho spital LDH 2020-06-08 10:01:00 Merrick Phelan spital BASIC METABOLIC PANEL 2020-06-08 10:01:00 Belem Betts [facility] COMPLETE BLD COUNT 2020-06-08 10:01:00 Merrick Phelan [facility] W/AUTO DIFF MAGNESIUM LEVEL 2020-06-08 10:01:00 Belem Betts Ho spital Edith PHOSPHORUS LEVEL 2020-06-08 10:01:00 Belem Betts H ospital Edith IONIZED CALCIUM 2020-06-08 10:01:00 Belem Betts spital Edith ESTIMATED GFR 2020-06-08 10:01:00 Belem Betts spital Edith POC GLUCOSE 2020-06-07 23:23:00 Merrick Phelan spital IONIZED CALCIUM 2020-06-07 19:00:00 Belem Betts spital Edith PHOSPHORUS LEVEL 2020-06-07 19:00:00 Belem Betts ospital Edith MAGNESIUM LEVEL 2020-06-07 19:00:00 Belem Betts spital Edith ESTIMATED GFR 2020-06-07 19:00:00 Belem Betts spital Edith BASIC METABOLIC PANEL 2020-06-07 19:00:00 Belem Betts [facility] Edith POC GLUCOSE 2020-06-07 18:11:00 Merrick Phelan spital POC GLUCOSE 2020-06-07 13:49:00 TapanMerrick saini spital HC COMPLETE BLD COUNT 2020-06-07 12:30:00 Armida Jimenez [facility] W/AUTO DIFF Njoya C-REACTIVE PROTEIN 2020-06-07 08:20:00 TapanMerrick [facility] D-DIMER 2020-06-07 08:20:00 Merrick Phelan spital FERRITIN LEVEL 2020-06-07 08:20:00 TapanMerrick saini spital INTERLEUKIN 6 2020-06-07 08:20:00 TapanMerrick saini spital LDH 2020-06-07 08:20:00 Merrick Phelan spital POC GLUCOSE 2020-06-07 02:51:00 Tapan, Mrerick Mccani Ho spital ABO AND RH CONFIRMATION 2020-06-07 00:10:00 [facility] GLU[facility]SE 2020-06-06 22:43:00 Tapan, Merrick Mccain Ho spital TYPE AND SCREEN 2020-06-06 22:00:00 Tapan, Merrick Garcia spital PREPARE RBC 2020-06-06 22:00:00 Tapan, Merrick Mccain Ho spital POC GLUCOSE 2020-06-06 17:55:00 Tapan, Merrick Mccain Ho spital POC GLUCOSE 2020-06-06 13:50:00 Tapan, Merrick Garcia spital HC COMPLETE BLD COUNT 2020-06-06 11:40:00 Tapan, Merrick Jones [facility] W/AUTO DIFF MAGNESIUM LEVEL 2020-06-06 11:40:00 Tapan, Merrick Garcia spital PHOSPHORUS LEVEL 2020-06-06 11:40:00 Tapan, Merrick Mccain H ospital C-REACTIVE PROTEIN 2020-06-06 11:40:00 Tapan, [facility] 2020-06-06 11:40:00 Tapan, Merrick Mccain Ho spital FERRITIN LEVEL 2020-06-06 11:40:00 Tapan, Merrick Garcia spital INTERLEUKIN 6 2020-06-06 11:40:00 TapanMerrick spital LDH 2020-06-06 11:40:00 TapanMerrick spital COMPREHENSIVE METABOLIC 2020-06-06 11:40:00 Tapan, Merrick Lim [facility] PANEL ESTIMATED GFR 2020-06-06 11:40:00 TapanMerrick spital SMEAR REVIEW 2020-06-06 11:40:00 TapanMerrick spital POC GLUCOSE 2020-06-06 02:07:00 Tapan, Merrick Garcia spital POC GLUCOSE 2020-06-05 18:13:00 TapanMerrick spital URINE CULTURE 2020-06-05 16:15:00 Merrick Phelan spital URINALYSIS SCREEN AND 2020-06-05 16:15:00 [facility], WITH REFLEX TO CULTURE XR CHEST 1 VW PORTABLE 2020-06-05 15:55:00 Merrick Phelan [facility] RESPIRATORY PATHOGEN 2020-06-05 14:48:00 Tapan[facility] WITH COVID-19 RT-PCR POC GLUCOSE 2020-06-05 14:41:00 Merrick Phelan spital BLOOD CULTURE, AEROBIC & 2020-06-05 14:20:00 Tapan, Merrick Lim [facility] ANAEROBIC BLOOD CULTURE, AEROBIC & 2020-06-05 14:10:00 [facility], Merrick Lim [facility] ANAEROBIC HC COMPLETE BLD COUNT 2020-06-05 10:15:00 Merrick Phelan [facility] W/AUTO DIFF COMPREHENSIVE METABOLIC 2020-06-05 10:15:00 TapanMerrick [facility] PANEL THYROID STIMULATING 2020-06-05 10:15:00 Merrick Phelan [facility] HORMONE T4, FREE 2020-06-05 10:15:00 Merrick Phelan spital MAGNESIUM LEVEL 2020-06-05 10:15:00 Merrick Phelan spital PHOSPHORUS LEVEL 2020-06-05 10:15:00 Merrick Phelan H ospital HEMOGLOBIN A1C 2020-06-05 10:15:00 Merrick Phelan spital LIPASE LEVEL 2020-06-05 10:15:00 Merrick Phelan spital AMYLASE LEVEL 2020-06-05 10:15:00 Merrick Phelna spital ESTIMATED GFR 2020-06-05 10:15:00 Merrick Phelan Ho spital POC GLUCOSE 2020-06-05 02:57:[address] ABDOMEN PELVIS WO 2020-06-05 02:10:30 [facility] POC GLUCOSE 2020-06-05 00:49:00 Merrick Phelan Raphael Mccain Ho spital CBC WITH PLATELET AND 2020-06-03 13:12:00 Leda Bloom [facility] DIFFERENTIAL COMPREHENSIVE METABOLIC 2020-06-03 13:12:00 Leda Bloom [facility] PANEL PROSTATE SPECIFIC ANTIGEN 2020-06-03 13:12:00 Leda Bloom [facility] COMPREHENSIVE METABOLIC 2020-05-20 16:00:00 Hudson Gutierrez [facility] PANEL CBC WITH PLATELET AND 2020-05-20 16:00:00 BijalHudson polk [facility] DIFFERENTIAL ESTIMATED GFR 2020-05-20 16:00:00 Hudson Gutierrez spital MANUAL DIFFERENTIAL 2020-05-20 16:00:00 [facility] Planned Activity Planned Date Details Comments Source Future Scheduled 2021-05-07 Hepatitis C screening [facility] Test 07:47:08 (procedure) [code = 142386025] Future Scheduled 2021-05-07 SHINGLES VACCINES Method [facility] Test 07:47:08 (#1) [code = SHINGLES VACCINES (#1)] Future Scheduled 2021-05-07 INFLUENZA VACCINE Method [facility] Test 07:47:08 [code = INFLUENZA VACCINE] Future Scheduled 2021-05-07 COLONOSCOPY SCREENING [facility] Test 07:47:08 [code = COLONOSCOPY SCREENING] Future Scheduled 2021-05-07 DIABETIC FOOT EXAM [facility] Test 07:47:08 [code = DIABETIC FOOT EXAM] Future Scheduled 2021-05-07 DIABETES: RETINAL EYE [facility] Test 07:47:08 EXAM [code = DIABETES: RETINAL EYE EXAM] Encounters Start End Encounter Admission Attending Care Care Encounter Source Date/Time Date/Time Type Type Clinicians Facility Department ID 2021-05-04 2021-05-04 Robbie Avendaño 1.2.840.5 [id number] Simone 00:00:00 00:00:00 Castillo Perez [id number] 100 s t 3.430.2.7 Hospit a .3.611831 l .8 2021-05-02 2021-05-02 Refill Salinas, 1.2.840.1 [id number] Methodi 00:00:00 00:00:00 G[address] Sant[address]. [address]06.1.[address] 3.430.2.7 Hospit a .3.232352 l .8 2021-04-27 2021-04-27 Refill [place], 1.2.840.1 [id number] Methodi 00:00:00 00:00:00 Gagan Santana. [address]49.1.[address] 3.430.2.7 Hospit a .3.446033 l .8 2021-04-14 2021-04-14 Telephone Juan, 1.2.840.1 [id number] Methodi 00:00:00 00:00:00 Davis Johnson 82793.1.[address] 3.430.2.7 Hospit a .3.642737 l .8 2021-04-14 2021-04-14 Orders Tushar, 1.2.840.1 [id number] Methodi 00:00:00 00:00:00 Only Paco 51617.1.[address] 3.430.2.7 Hospit a .3.337443 l .8 2021-04-14 2021-04-14 Travel 1.2.840.1 1.2.002.258 [id number] Methodi 00:00:00 00:00:[address] 3.430.2.7 0.2.7.3.698 Ho spita .3.114942 084.8 l .8 2021-04-13 2021-04-13 Telephone Bloom, 1.2.840.1 [id number] Methodi 09:17:02 09:32:02 Consult Leda 97207.1.[address] 3.430.2.7 Hospit a .3.488376 l .8 2021-04-08 2021-04-08 Telephone Pradeep, 1.2.840.1 [id number] Methodi 00:00:00 00:00:[address] 3.430.2.7 Hospit a .3.432890 l .8 2021-04-07 2021-04-07 Orders Tushar, 1.2.840.1 [id number] Methodi 00:00:00 00:00:00 Only Paco 39959.1.[address] 3.430.2.7 Hospit a .3.695101 l .8 2021-04-07 2021-04-07 Orders Tushar, 1.2.840.1 [id number] Methodi 00:00:00 00:00:00 Only Paco 40750.1.[address] 3.430.2.7 Hospit a .3.188618 l .8 2021-04-06 2021-04-06 Telephone Tushar, 1.2.840.1 [id number] Methodi 00:00:00 00:00:[address] 3.430.2.7 Hospit a .3.115646 l .8 2021-03-29 2021-03-29 Telephone Brad, 1.2.840.1 [id number] [id number] Methodi 14:57:15 16:46:41 Consult Gagan A. 25653.1.[address] 3.430.2.7 Hospit a .3.023003 l .8 2021-03-29 2021-03-29 Travel 1.2.840.1 [id number] [id number] Methodi 00:00:00 00:00:[address] 3.430.2.7 0.2.7.3.698 Ho spita .3.429978 084.8 l .8 2021-03-29 2021-03-29 Telephone Sulaiman, 1.2.840.1 [id number] Methodi 00:00:00 00:00:00 Eugenio Mcqueen [address]99.1.[address] 3.430.2.7 Hospit a .3.500051 l .8 2021-03-09 2021-03-22 [facility] Merrick Phelan 1.2.840.1 [id number] Methodi 13:00:00 15:39:00 Encounter Nanda Calvert 84380.1.[address] 3.430.2.7 Hospit a .3.993981 l .8 2021-03-22 2021-03-22 Orders Wolf 1.2.840.1 [id number] Methodi 00:00:00 00:00:00 Only Leda 17015.1.[address] 3.430.2.7 Hospit a .3.937674 l .8 2021-03-22 2021-03-22 Telephone Wolf 1.2.840.1 [id number] 2099 [id number] Methodi 00:00:00 00:00:[address] 3.430.2.7 Hospit a .3.655508 l .8 2021-03-20 2021-03-20 Refill Brad 1.2.840.1 [id number] Methodi 00:00:00 00:00:00 Gagan Klein 52537.1.[address] 3.430.2.7 Hospit a .3.475349 l .8 2021-03-16 2021-03-16 Anesthesia Mario Zarco 1.2.840 .1 [id number] Methodi 15:40:00 20:17:00 Event Karol Higginbotham 54511.1.[address] 3.430.2.7 Hospit a .3.166281 l .8 2021-03-16 2021-03-16 Surgery Ayden, 1.2.840.1 [id number] Methodi 14:30:00 19:25:[address] 3.430.2.7 Hospit a .3.214922 l .8 2021-03-09 2021-03-09 Telephone Wolf 1.2.840.1 [id number] 2099 [id number] Methodi 00:00:00 00:00:[address] 3.430.2.7 Hospit a .3.791514 l .8 2021-03-09 2021-03-09 Orders Tushar, 1.2.840.1 [id number] Methodi 00:00:00 00:00:00 Only Paco 07658.1.[address] 3.430.2.7 Hospit a .3.622983 l .8 2021-03-08 2021-03-08 [facility], 1.2.840.1 [id number] 2099 [id number] Methodi 00:00:00 00:00:[address] 3.430.2.7 Hospit a .3.866778 l .8 2021-03-05 2021-03-05 Orders Tushar, 1.2.840.1 [id number] 1233 Methodi 00:00:00 00:00:00 [address] Paco 21834.1.[address] 3.430.2.7 Hospit a .3.389661 l .8 2021-02-17 2021-02-17 [facility] [place], 1.2.840.1 [id number] 837 6723689 Methodi 13:04:29 14:52:[address] 3.430.2.7 Hospit a .3.034953 l .8 2021-02-17 2021-02-17 [facility], 1.2.840.1 [id number] 08166 65817 Methodi 11:44:31 14:51:56 Encounter Leda 55283.1.[address] 3.430.2.7 Hospit a .3.223558 l .8 2021-02-17 2021-02-17 [facility] 1.2.840.1 1.2.227.362 7134 939563 Methodi 00:00:00 00:00:[address] 3.430.2.7 0.2.7.3.698 Ho spita .3.055055 084.8 l .8 2021-02-15 2021-02-15 Travel 1.2.840.1 1.2.724.711 6129 241759 Methodi 00:00:00 00:00:[address] 3.430.2.7 0.2.7.3.698 Ho spita .3.208261 084.8 l .8 2021-02-15 2021-02-15 Orders Lomboy, 1.2.840.1 [id number] 551982 3308 Methodi 00:00:00 00:00:00 Only Adriana 34967.1.[address] 3.430.2.7 Hospit a .3.775088 l .8 2021-02-11 2021-02-11 Orders Farach, 1.2.840.1 [id number] 022282 6852 Methodi 00:00:00 00:00:00 Only Eugenio Mcqueen 53278.1.[address] 3.430.2.7 Hospit a .3.744958 l .8 2021-02-11 2021-02-11 Refill Salinas, 1.2.840.1 717684089 452118 6109 Methodi 00:00:00 00:00:00 Gagan Santana. 23559.1.[address] 3.430.2.7 Hospit a .3.060382 l .8 2021-02-10 2021-02-10 Refill Farach, 1.2.840.1 [id number] 917730 9513 Methodi 00:00:00 00:00:00 [address]que[address].1.[address] 3.430.2.7 Hospit a .3.219930 l .8 2021-02-10 2021-02-10 Refill [place], 1.2.840.1 [id number] 398000 2691 Methodi 00:00:00 00:00:[address]Bogdan [address].1.[address] 3.430.2.7 Hospit a .3.450442 l .8 2021-02-08 2021-02-08 Angel Finley, 1.2.840.1 [id number] 2099 608509 Methodi 00:00:00 00:00:[address] 3.430.2.7 Hospit a .3.888162 l .8 2021-02-08 2021-02-08 Orders Mehdi, 1.2.840.1 [id number] 2100 763814 Methodi 00:00:00 00:00:00 Only Jennifer 83857.1.[address] [place] 3.430.2.7 Hospit a .3.207112 l .8 2021-02-03 2021-02-03 Orders Tushar, 1.2.840.1 [id number] 829134 8510 Methodi 00:00:00 00:00:00 Only Paco 26570.1.[address] 3.430.2.7 Hospit a .3.090422 l .8 2021-01-20 2021-01-20 [facility], 1.2.840.1 [id number] 56779 67704 Methodi 11:30:00 23:59:00 Encounter Leda 88551.1.[address] 3.430.2.7 Hospit a .3.080883 l .8 2021-01-20 2021-01-20 [facility] 1.2.840.1 [id number] 70250 24144 Methodi 10:15:32 10:50:[address] 3.430.2.7 Hospit a .3.014735 l .8 2021-01-19 2021-01-20 [facility] Sulaiman Eugenio M. 1.2.840.1 18029 1011 [id number] Methodi 10:40:46 07:33:51 Encounter Lucia Almeida 66835.1.[address] 3.430.2.7 Hospit a .3.684952 l .8 2021-01-20 2021-01-20 Orders Brannon, 1.2.840.1 [id number] 2099 497008 Methodi 00:00:00 00:00:00 Only Unknown 26484.1.[address] 3.430.2.7 Hospit a .3.344871 l .8 2021-01-19 2021-01-19 [facility] 1.2.840.1 [id number] 96017 65137 Methodi 10:19:21 10:38:[address] 3.430.2.7 Hospit a .3.918206 l .8 2021-01-19 2021-01-19 Orders Provider, 1.2.840.1 [id number] 2099 562152 Methodi 00:00:00 00:00:00 Only Unknown 01829.1.[address] 3.430.2.7 Hospit a .3.695741 l .8 2021-01-19 2021-01-19 [facility] 1.2.840.1 1.2.130.976 5723 970573 Methodi 00:00:00 00:00:[address] 3.430.2.7 0.2.7.3.698 Ho spita .3.382408 084.8 l .8 2021-01-18 2021-01-18 [facility] 1.2.840.1 [id number] 63439 Methodi 09:59:05 10:42:[address] 3.430.2.7 Hospit a .3.584775 l .8 2021-01-18 2021-01-18 Orders Provider, 1.2.840.1 [id number] 2099 719464 Methodi 00:00:00 00:00:00 Only Unknown 17748.1.[address] 3.430.2.7 Hospit a .3.752797 l .8 2021-01-15 2021-01-15 [facility] 1.2.840.1 [id number] 21001 31324 Methodi 09:55:05 10:16:[address] 3.430.2.7 Hospit a .3.912520 l .8 2021-01-15 2021-01-15 Orders Provider, 1.2.840.1 [id number] 2099 554511 Methodi 00:00:00 00:00:00 Only Unknown 25029.1.[address] 3.430.2.7 Hospit a .3.982362 l .8 2021-01-14 2021-01-14 Hospital [facility], 1.2.840.1 [id number] 21001 51646 Methodi 23:59:00 23:59:00 Encounter Eugenio Mcqueen 25487.1.[address] 3.430.2.7 Hospit a .3.674885 l .8 2021-01-14 2021-01-14 Travel 1.2.840.1 1.2.842.693 7446 425365 Methodi 00:00:00 00:00:[address] 3.430.2.7 0.2.7.3.698 Ho spita .3.125688 084.8 l .8 2021-01-13 2021-01-13 [facility] 1.2.840.1 [id number] 21001 66258 Methodi 10:00:41 10:13:[address] 3.430.2.7 Hospit a .3.820666 l .8 2021-01-13 2021-01-13 Orders [facility], 1.2.840.1 [id number] 2099 182959 Methodi 00:00:00 00:00:00 Only Unknown 20620.1.[address] 3.430.2.7 Hospit a .3.290121 l .8 2021-01-12 2021-01-12 [facility] 1.2.840.1 [id number] 21001 87573 Methodi 09:49:14 10:15:[address] 3.430.2.7 Hospit a .3.007805 l .8 2021-01-12 2021-01-12 Travel 1.2.840.1 1.2.889.890 3921 748308 Methodi 00:00:00 00:00:[address] 3.430.2.7 0.2.7.3.698 Ho spita .3.887750 084.8 l .8 2021-01-12 2021-01-12 Orders Provider, 1.2.840.1 [id number] 2099 048407 Methodi 00:00:00 00:00:00 Only Unknown 82281.1.[address] 3.430.2.7 Hospit a .3.750569 l .8 2021-01-11 2021-01-11 [facility] 1.2.840.1 [id number] 21001 34040 Methodi 10:01:59 10:51:[address] 3.430.2.7 Hospit a .3.930621 l .8 2021-01-11 2021-01-11 Orders Mehdi, 1.2.840.1 388162236 2100 800309 Methodi 00:00:00 00:00:00 Only Jennifer 27894.1.[address] [place] 3.430.2.7 Hospit a .3.601217 l .8 2021-01-11 2021-01-11 Orders Tushar, 1.2.840.1 [id number] 797537 2440 Methodi 00:00:00 00:00:00 Only Soledadna 99932.1.[address] 3.430.2.7 Hospit a .3.650319 l .8 2021-01-11 2021-01-11 Orders Provider, 1.2.840.1 [id number] 2099 712121 Methodi 00:00:00 00:00:00 Only Unknown 93678.1.[address] 3.430.2.7 Hospit a .3.719458 l .8 2021-01-11 2021-01-11 Telephone [facility], 1.2.840.1 [id number] 2099 126141 Methodi 00:00:00 00:00:[address] 3.430.2.7 Hospit a .3.728147 l .8 2021-01-08 2021-01-08 [facility] 1.2.840.1 [id number] 49076 Methodi 14:25:27 15:22:[address] 3.430.2.7 Hospit a .3.119965 l .8 2021-01-08 2021-01-08 [facility], 1.2.840.1 [id number] 21001 18552 Methodi 01:00:00 15:04:09 Encounter Eugenio Mcqueen 49036.1.[address] 3.430.2.7 Hospit a .3.072130 l .8 2021-01-08 2021-01-08 Orders Provider, 1.2.840.1 [id number] 2099 762234 Methodi 00:00:00 00:00:00 Only Unknown 51475.1.[address] 3.430.2.7 Hospit a .3.093707 l .8 2021-01-08 2021-01-08 Orders Mehdi, 1.2.840.1 [id number] 2100 330300 Methodi 00:00:00 00:00:00 Only Jennifer 32241.1.[address] [place] 3.430.2.7 Hospit a .3.243678 l .8 2021-01-07 2021-01-07 [facility], 1.2.840.1 [id number] 21001 93834 Methodi 16:00:00 23:59:00 Encounter Eugenio Mcqueen 54604.1.[address] 3.430.2.7 Hospit a .3.460087 l .8 2021-01-07 2021-01-07 [facility] Eugenio Huerta. 1.2.840.1 25278 1 [id number] Methodi 15:30:00 16:23:47 Encounter Alexandria Evans 13431.1.[address] 3.430.2.7 Hospit a .3.472938 l .8 2021-01-07 2021-01-07 [facility] 1.2.840.1 [id number] 21001 78244 Methodi 14:32:49 15:27:[address] 3.430.2.7 Hospit a .3.564239 l .8 2021-01-07 2021-01-07 Orders Provider, 1.2.840.1 [id number] 179672 Methodi 00:00:00 00:00:00 Only Unknown 91824.1.[address] 3.430.2.7 Hospit a .3.120074 l .8 2021-01-06 2021-01-06 [facility], 1.2.840.1 [id number] 66982 Methodi 14:39:56 15:04:20 Encounter Eugenio Mcqueen 37692.1.[address] 3.430.2.7 Hospit a .3.700949 l .8 2021-01-06 2021-01-06 Travel 1.2.840.1 1.2.832.176 9798 426859 Methodi 00:00:00 00:00:[address] 3.430.2.7 0.2.7.3.698 Ho spita .3.868196 084.8 l .8 2021-01-06 2021-01-06 Orders [facility], 1.2.840.1 [id number] 2099 857756 Methodi 00:00:00 00:00:00 Only Unknown 82967.1.[address] 3.430.2.7 Hospit a .3.935708 l .8 2021-01-05 2021-01-05 [facility], 1.2.840.1 [id number] 169280 6932 Methodi 00:00:00 00:00:00 Only Eugenio Mcqueen 87525.1.[address] 3.430.2.7 Hospit a .3.289261 l .8 2021-01-04 2021-01-04 Orders [facility], 1.2.840.1 [id number] 969959 1238 Methodi 00:00:00 00:00:00 Only Leda 41738.1.[address] 3.430.2.7 Hospit a .3.910200 l .8 2020-12-31 2020-12-31 [facility], 1.2.840.1 [id number] 78736 79369 Methodi 11:00:00 11:26:35 Encounter Eugenio Mcqueen 31760.1.[address] 3.430.2.7 Hospit a .3.703914 l .8 2020-12-31 [facility]1 03710 1011 3854701625 Methodi 08:58:04 10:49:58 Encounter Mellisa Morales 18794.1.[address] 3.430.2.7 Hospit a .3.446058 l .8 2020-12-31 2020-12-31 Travel 1.2.840.1 1.2.598.187 7956 790178 Methodi 00:00:00 00:00:[address] 3.430.2.7 0.2.7.3.698 Ho spita .3.661450 084.8 l .8 2020-12-30 2020-12-30 [facility], 1.2.840.1 [id number] 2099 607338 Methodi 00:00:00 00:00:00 Eugen[address] Mcqueen 55399.1.[address] 3.430.2.7 Hospit a .3.401668 l .8 2020-12-24 2020-12-24 [facility], 1.2.840.1 [id number] 404 Methodi 23:59:00 23:59:00 Encounter Eugenio Mcqueen 91252.1.[address] 3.430.2.7 Hospit a .3.761396 l .8 2020-12-24 2020-12-24 Travel 1.2.840.1 1.2.334.713 8686 219094 Methodi 00:00:00 00:00:[address] 3.430.2.7 0.2.7.3.698 Ho spita .3.750755 084.8 l .8 2020-12-22 2020-12-23 [facility], 1.2.840.1 [id number] 21001 82577 Methodi 01:00:00 09:01:52 Encounter Eugenio Mcqueen 12859.1.[address] 3.430.2.7 Hospit a .3.952470 l .8 2020-12-21 2020-12-21 Bowdon Sulaiman, 1.2.840.1 [id number] 2100 998616 Methodi 00:00:00 00:00:00 Eugen[address] Mcqueen [address]2759.[address] 3.430.2.7 Hospit a .3.553818 l .8 2020-12-21 2020-12-21 Travel 1.2.840.1 1.2.182.816 7600 488800 Methodi 00:00:00 00:00:[address] 3.430.2.7 0.2.7.3.698 Ho spita .3.817006 084.8 l .8 2020-12-18 2020-12-18 [facility], 1.2.840.1 [id number] 55535 43854 Methodi 11:46:44 23:59:00 Encounter Leda 31510.1.[address] 3.430.2.7 Hospit a .3.088070 l .8 2020-12-15 2020-12-15 Travel 1.2.840.1 1.2.409.206 2991 903903 Methodi 00:00:00 00:00:[address] 3.430.2.7 0.2.7.3.698 Ho spita .3.137247 084.8 l .8 2020-12-07 2020-12-07 [facility] Tushar, 1.2.840.1 [id number] 102697 2918 Methodi 00:00:00 00:00:00 Only Paco 22030.1.[address] 3.430.2.7 Hospit a .3.524055 l .8 2020-12-03 2020-12-03 [facility], 1.2.840.1 [id number] 94098 15621 Methodi 12:22:58 23:59:00 Encounter Leda 90145.1.[address] 3.430.2.7 Hospit a .3.204299 l .8 2020-12-03 2020-12-03 [facility], 1.2.840.1 [id number] 96624 Methodi 10:58:19 12:21:00 Encounter Leda 79285.1.[address] 3.430.2.7 Hospit a .3.710298 l .8 2020-12-03 2020-12-03 [facility], 1.2.840.1 [id number] 04599 Methodi 08:36:08 10:57:00 Encounter Leda 05497.1.[address] 3.430.2.7 Hospit a .3.538752 l .8 2020-12-03 2020-12-03 [facility], 1.2.840.1 [id number] 87676 Methodi 08:20:32 08:35:00 Encounter Leda 76158.1.[address] 3.430.2.7 Hospit a .3.417870 l .8 2020-12-03 2020-12-03 Travel 1.2.840.1 1.2.019.961 8792 470184 Methodi 00:00:00 00:00:[address] 3.430.2.7 0.2.7.3.698 Ho spita .3.114960 084.8 l .8 2020-12-02 2020-12-02 Andrade Finley, 1.2.840.1 [id number] 430965 6985 Methodi 00:00:00 00:00:00 Only Paco 65883.1.[address] 3.430.2.7 Hospit a .3.487845 l .8 2020-11-25 2020-11-25 [facility], 1.2.840.1 [id number] 2099 993244 Methodi 00:00:00 00:00:[address] 3.430.2.7 Hospit a .3.148729 l .8 2020 2020 Santos Salinas, 1.2.840.1 [id number] 804077 5438 Methodi 11:49:13 12:38:02 Visit Gagan Klein 39603.1.[address] 3.430.2.7 Hospit a .3.223659 l .8 2020 2020 Nurse Only Wolf, 1.2.840.1 [id number] 016 1473099 Methodi 10:40:23 11:10:[address] 3.430.2.7 Hospit a .3.124278 l .8 2020 2020 [facility], 1.2.840.1 [id number] 725632 5986 Methodi 09:13:32 09:43:32 Visit Leda 84459.1.[address] 3.430.2.7 Hospit a .3.047853 l .8 2020 2020 Travel 1.2.840.1 1.2.951.962 2889 005631 Methodi 00:00:00 00:00:[address] 3.430.2.7 0.2.7.3.698 spita .3.301001 084.8 l .8 2020-11-22 2020-11-22 Refill [place], 1.2.840.1 932234523 096154 4280 Methodi 00:00:00 00:00:00 Gagan Klein 73365.1.[address] 3.430.2.7 Hospit a .3.129302 l .8 2020-11-17 2020-11-17 [facility] [place], 1.2.840.1 801842572 75825 39420 Methodi 11:55:06 23:59:00 Encounter Leda 29997.1.[address] 3.430.2.7 Hospit a .3.394119 l .8 2020-11-13 2020-11-13 Bowdon Wolf, 1.2.840.1 235116137 2100 778620 Methodi 00:00:00 00:00:[address] 3.430.2.7 Hospit a .3.874075 l .8 2020-10-29 2020-10-29 Orders Tushar, 1.2.840.1 531626569 084156 4563 Methodi 00:00:00 00:00:00 Only Paco 95517.1.[address] 3.430.2.7 Hospit a .3.535669 l .8 2020-10-16 2020-10-16 Refill Wolf, 1.2.840.1 257233424 148871 4704 Methodi 00:00:00 00:00:[address] 3.430.2.7 Hospit a .3.586065 l .8 2020-10-15 2020-10-15 [facility] Wolf, 1.2.840.1 655378438 00795 88442 Methodi 10:53:40 23:59:00 Encounter Leda 08566.1.[address] 3.430.2.7 Hospit a .3.979303 l .8 2020-10-15 2020-10-15 Travel 1.2.840.1 1.2.004.702 6771 321998 Methodi 00:00:00 00:00:[address] 3.430.2.7 0.2.7.3.698 Ho spita .3.858887 084.8 l .8 2020-10-08 2020-10-08 Bowdon Wolf, 1.2.840.1 [id number] 2099 919636 Methodi 00:00:00 00:00:[address] 3.430.2.7 Hospit a .3.181806 l .8 2020-10-05 2020-10-05 Andrade Finley, 1.2.840.1 725304215 391563 2902 Methodi 00:00:00 00:00:00 Only Paco 16093.1.[address] 3.430.2.7 Hospit a .3.706321 l .8 2020-10-02 2020-10-02 Refill Brad, 1.2.840.1 [id number] 672372 3966 Methodi 00:00:00 00:00:00 Gagan Santana. 10015.1.[address] 3.430.2.7 Hospit a .3.037935 l .8 2020-09-26 2020-09-26 Refill [place], 1.2.840.1 964507101 299742 8801 Methodi 00:00:00 00:00:00 Gagan Santana. 71317.1.[address] 3.430.2.7 Hospit a .3.680005 l .8 2020-09-24 2020-09-24 Refill [place], 1.2.840.1 188458716 120162 0009 Methodi 00:00:00 00:00:00 Gagan Santana. 86213.1.[address] 3.430.2.7 Hospit a .3.303500 l .8 2020-09-23 2020-09-23 Refill Bloom, 1.2.840.1 [id number] 347271 2488 Methodi 00:00:00 00:00:[address] 3.430.2.7 Hospit a .3.467444 l .8 2020-09-16 2020-09-16 [facility] Tushar, 1.2.840.1 059453831 092803 1379 Methodi 00:00:00 00:00:00 Only Paco 80894.1.[address] 3.430.2.7 Hospit a .3.959430 l .8 2020-09-15 2020-09-15 [facility] [place], 1.2.840.1 867809589 92141 37151 Methodi 10:12:17 23:59:00 Encounter Leda 11661.1.[address] 3.430.2.7 Hospit a .3.100990 l .8 2020-09-15 2020-09-15 Travel 1.2.840.1 1.2.273.737 7796 439053 Methodi 00:00:00 00:00:[address] 3.430.2.7 0.2.7.3.698 Ho spita .3.910515 084.8 l .8 2020-09-09 2020-09-09 Travel 1.2.840.1 1.2.593.140 1785 356331 Methodi 00:00:00 00:00:[address] 3.430.2.7 0.2.7.3.698 Ho spita .3.304676 084.8 l .8 2020-09-01 2020-09-01 Office [place], 1.2.840.1 [id number] 020472 7033 Methodi 10:41:14 12:21:16 Visit Gagan Klein 60467.1.[address] 3.430.2.7 Hospit a .3.261845 l .8 2020-09-01 2020-09-01 Nurse Only Wolf, 1.2.840.1 [id number] 960 6053405 Methodi 08:40:02 09:10:[address] 3.430.2.7 Hospit a .3.981619 l .8 2020-09-01 2020-09-01 Orders Jesus, 1.2.840.1 [id number] 366512 7985 Methodi 00:00:00 00:00:00 Only Jonnie 72105.1.1 [address] 3.430.2.7 Hospit a .3.859705 l .8 2020-09-01 2020-09-01 Travel 1.2.840.1 1.2.822.172 3941 317161 Methodi 00:00:00 00:00:[address] 3.430.2.7 0.2.7.3.698 Ho spita .3.291199 084.8 l .8 2020-08-31 2020-08-31 Orders Tushar, 1.2.840.1 [id number] 466255 6730 Methodi 00:00:00 00:00:00 Only Paco 03887.1.[address] 3.430.2.7 Hospit a .3.543775 l .8 2020-08-19 2020-08-19 Andrade Bloom, 1.2.840.1 165644972 757659 4801 Methodi 00:00:00 00:00:00 Only Leda 14066.1.[address] 3.430.2.7 Hospit a .3.125083 l .8 2020-08-19 2020-08-19 Telephone Tushar, 1.2.840.1 818473162 2100 371851 Methodi 00:00:00 00:00:[address] 3.430.2.7 Hospit a .3.469910 l .8 2020-08-07 2020-08-07 Refill Wolf 1.2.840.1 [id number] 932188 1043 Methodi 00:00:00 00:00:[address] 3.430.2.7 Hospit a .3.415604 l .8 2020-08-02 2020-08-02 Refill Brad, 1.2.840.1 846071320 520136 1985 Methodi 00:00:00 00:00:00 Gagan Santana. 75435.1.[address] 3.430.2.7 Hospit a .3.598076 l .8 2020-05-20 2020-07-28 Clinical 1.2.840.1 193241153 63514 49224 Methodi 08:23:15 08:03:[address] 3.430.2.7 Hospit a .3.847675 l .8 2020-07-27 2020-07-27 Andrade Finley, 1.2.840.1 [id number] 056839 6411 Methodi 00:00:00 00:00:00 Only Paco 14920.1.[address] 3.430.2.7 Hospit a .3.896806 l .8 2020-07-27 2020-07-27 Angel [facility], 1.2.840.1 072757668 2100 977567 Methodi 00:00:00 00:00:[address] 3.430.2.7 Hospit a .3.805054 l .8 2020-07-14 2020-07-14 Orders Tushar, 1.2.840.1 [id number] 173987 7364 Methodi 00:00:00 00:00:00 Only Paco 14047.1.[address] 3.430.2.7 Hospit a .3.441347 l .8 2020-07-07 2020-07-07 Telephone Bloom, 1.2.840.1 412741381 2100 428278 Methodi 10:36:38 15:38:35 Consult Leda 96167.1.[address] 3.430.2.7 Hospit a .3.519679 l .8 2020-07-07 2020-07-07 Refill Brad, 1.2.840.1 352741795 414641 1703 Methodi 00:00:00 00:00:00 Gagan Klein 05219.1.[address] 3.430.2.7 Hospit a .3.607158 l .8 2020-07-07 2020-07-07 Refill Wolf, 1.2.840.1 [id number] 843150 0638 Methodi 00:00:00 00:00:[address] 3.430.2.7 Hospit a .3.148163 l .8 2020-07-06 2020-07-06 [facility] Jose Roberto Jimenez 1.2.840.1 23308 1011 8446147908 Methodi 09:59:44 10:42:25 Encounter Annette Moralesily 28189.1.[address] 3.430.2.7 Hospit a .3.614462 l .8 2020-07-06 2020-07-06 Travel 1.2.840.1 1.2.490.594 2721 001477 Methodi 00:00:00 00:00:[address] 3.430.2.7 0.2.7.3.698 Jose alvarez .3.363840 084.8 l .8 2020-07-02 2020-07-02 Travel 1.2.840.1 1.2.868.295 8309 759852 Methodi 00:00:00 00:00:[address] 3.430.2.7 0.2.7.3.698 Ho spita .3.399483 084.8 l .8 2020-06-27 2020-06-27 Refill [place], 1.2.840.1 [id number] 053199 8394 Methodi 00:00:00 00:00:00 Gagan Klein 53286.1.[address] 3.430.2.7 Hospit a .3.404233 l .8 2020-06-26 2020-06-26 [facility], 1.2.840.1 [id number] 47218 99305 Methodi 07:00:00 23:59:00 Encounter Jose Roberto ShaferBogdan 66081.1.[address] 3.430.2.7 Hospit a .3.288639 l .8 2020-06-26 2020-06-26 Travel 1.2.840.1 1.2.368.132 5680 233682 Methodi 00:00:00 00:00:[address] 3.430.2.7 0.2.7.3.698 Ho spita .3.527534 084.8 l .8 2020-06-24 2020-06-24 [facility], 1.2.840.1 [id number] 49329 49941 Methodi 12:20:37 23:59:00 Encounter Leda 79820.1.[address] 3.430.2.7 Hospit a .3.774059 l .8 2020-06-24 2020-06-24 [facility], 1.2.840.1 [id number] 24298 27892 Methodi 09:48:24 12:19:00 Encounter Leda 78680.1.[address] 3.430.2.7 Hospit a .3.450713 l .8 2020-06-24 2020-06-24 [facility], 1.2.840.1 [id number] 31201 07595 Methodi 09:15:00 09:47:00 Encounter Leda 47248.1.[address] 3.430.2.7 Hospit a .3.731372 l .8 2020-06-24 2020-06-24 Travel 1.2.840.1 1.2.835.156 0110 642056 Methodi 00:00:00 00:00:[address] 3.430.2.7 0.2.7.3.698 Ho spita .3.084357 084.8 l .8 2020-06-24 2020-06-24 Refill Wolf, 1.2.840.1 [id number] 1049 Methodi 00:00:00 00:00:[address] 3.430.2.7 Hospit a .3.053436 l .8 2020-06-17 2020-06-17 [facility], 1.2.840.1 [id number] 5080 Methodi 12:09:42 16:15:49 Visit Leda 04890.1.[address] 3.430.2.7 Hospit a .3.688193 l .8 2020-06-17 2020-06-17 Nurse Only [facility], 1.2.840.1 [id number] 200 [id number] Methodi 09:44:09 10:14:[address] 3.430.2.7 Hospit a .3.547720 l .8 2020-06-17 2020-06-17 Travel 1.2.840.1 1.2.713.404 9263 178007 Methodi 00:00:00 00:00:[address] 3.430.2.7 0.2.7.3.698 Ho spita .3.699918 084.8 l .8 2020-06-04 2020-06-08 [facility] Merrick Phelan 1.2.840.1 [id number] Methodi 15:28:00 13:23:00 Encounter Raphael 67554.1.[address] 3.430.2.7 Hospit a .3.784950 l .8 2020-06-04 2020-06-04 Andrade Finley, 1.2.840.1 [id number] 8499 Methodi 00:00:00 00:00:00 Only Paco 80140.1.[address] 3.430.2.7 Hospit a .3.855589 l .8 2020-06-04 2020-06-04 Telephone Wolf 1.2.840.1 [id number] 2099 [id number] Methodi 00:00:00 00:00:[address] 3.430.2.7 Hospit a .3.226601 l .8 2020-06-03 2020-06-03 Robbie [place]inas, 1.2.840.1 [id number] 758349 3066 Methodi 00:00:00 00:00:00 G[address] Sant[address]408.1.[address] 3.430.2.7 Hospit a .3.989170 l .8 2020-06-02 2020-06-02 Andrade Finley, 1.2.840.1 [id number] 480059 9822 Methodi 00:00:00 00:00:00 Only Paco 01269.1.[address] 3.430.2.7 Hospit a .3.084474 l .8 2020-06-02 2020-06-02 Telephone Wolf 1.2.840.1 [id number] 2100 860492 Methodi 00:00:00 00:00:[address] 3.430.2.7 Hospit a .3.053324 l .8 2020-05-27 2020-05-27 Telephone Wolf 1.2.840.1 [id number] 2100 [id number] Methodi 13:37:12 14:07:12 Consult Leda 29727.1.[address] 3.430.2.7 Hospit a .3.201921 l .8 2020-05-20 2020-05-20 Emergency Nusjam, 1.2.840.1 [id number] 2099 357264 Methodi 09:38:00 11:09:00 [place] Klein 29437.1.[address] 3.430.2.7 Hospit a .3.194185 l .8 2020-05-20 2020-05-20 Telephone [facility], 1.2.840.1 [id number] 2099 845368 Methodi 00:00:00 00:00:[address] 3.430.2.7 Hospit a .3.131651 l .8 2020-05-11 2020-05-11 Orders [facility], 1.2.840.1 [id number] 7155 Methodi 00:00:00 00:00:00 Only Leda 13847.1.[address] 3.430.2.7 Hospit a .3.662097 l .8 2020-05-11 2020-05-11 Telephone [facility], 1.2.840.1 [id number] 2099 023894 Methodi 00:00:00 00:00:[address] 3.430.2.7 Hospit a .3.484208 l .8 2018-05-01 2018-05-01 [facility] [id number] [facility] 11:45:00 11:45:00 [facility] 2018-04-05 2018-04-05 [facility] [id number] [facility] 09:45:00 09:45:00 [facility] Outpati ent Clinics 2018-03-21 2018-03-21 [facility] [id number] [facility] [address] 10:05:00 10:05:00 [facility] Outpati ent Clinics 2018-01-16 2018-01-16 [facility] [address] [facility] 14:30:00 14:30:00 [facility] 2018-01-01 2018-01-01 [facility] [id number] [facility] 16:18:00 16:18:00 t [facility] ent [facility] 2017-12-14 2017-12-14 [facility] [id number] [facility] 11:46:00 11:46:00 t Specialty/U Meme kes - Specialty rology [facility] a [facility] 2017-11-09 2017-11-09 [facility] [address] 13:16:00 13:16:00 [facility] 2017-11-02 2017-11-02 [facility] [id number] [facility] [address] 13:38:00 13:38:00 [facility] 2017-11-02 2017-11-02 [facility] [address] [facility] 08:30:00 08:30:00 [facility] Results Test Description Test Time Test Comments Results Result Comments Source Comprehensive metabolic panel 2021-04-13 08:26:00 Test Item Value Reference Range Interpretation Comme nts Glucose (test code = 105 mg/dL 65-99 H Fasting 2345-7) reference inter jem For someone without known diabetes, a glu cose valuebetween 10 0 and 125 mg/dL is consis tent withprediabetes and should be confi rmed with afollow-up test . BUN (test code = 3094-0) 19 mg/dL 7-25 Creatinine (test code = 1.25 mg/dL 0.70-1.18 H For patients >49 years of 2160-0) age, the refere nce limitfor Creati nine is approximately 1 3% higher for peopleident ified as -[place] n. EGFR Non-Afr. [place] See_Comment L [Aut omated message] The (test code = 2775) system [facility] generated this result tra nsmitted reference range : > OR = 60 mL/min/1.73m 2. The reference range was not used to interpr et this result as normal/abnormal . EGFR See_Comment [Auto mated message] The (test code = 2774) system wh ich generated this result tra nsmitted reference range : > OR = 60 mL/min/1.73m 2. The reference range was not used to interpr et this result as normal/abnormal . BUN/creatinine ratio See_Comment [Autom ated message] The (test code = 3097-3) system which generated this result tra nsmitted reference range : 6 - 22 (calc). The ref erence range was not u sed to interpret this result as normal/abnormal . Sodium (test code = 141 mmol/L 239-496 6529-2) Potassium (test code = 3.4 mmol/L 3.5-5.3 L 2823-3) Chloride (test code = 103 mmol/L 98-110 2075-0) CO2 (test code = 8-9) 23 mmol/L 20-32 Calcium (test code = 9.0 mg/dL 8.6-10.3 73985-8) Protein (test code = 5.9 g/dL 6.1-8.1 L 2885-2) Albumin, S (test code = 3.3 g/dL 3.6-5.1 L 1751-7) Globulin, total (test See_Comment [Auto mated message] The code = 59962-4) system which generated this result tra nsmitted reference range : 1.9 - 3.7 g/dL (calc) . The reference range was not used to interpr et this result as normal/abnormal . Albumin/globulin ratio See_Comment [Aut omated message] The (test code = 1759-0) system which generated this result tra nsmitted reference range : 1.0 - 2.5 (calc). The reference range was not u sed to interpret this result as normal/abnormal . Total bilirubin (test 0.7 mg/dL 0.2-1.2 code = 1974-) Alkaline phosphatase 88 U/L 35-144 (test code = 6768-6) AST (test code = 1920-8) 14 U/L 10-35 ALT (test code = 1742-6) 5 U/L 9-46 L RAC (test code = RAC) Performing Organization Information: Site ID: JAVAN Name: [email or web address] Address: [address] [place] [phone] Director: Cali Omalley Lab Interpretation (test Abnormal code = 24929-1) [facility] specific [id number] 08:26:00 Test Item Value Reference Interpretation Comments Range PSA (test code = 39.11 ng/mL See_Comment H The total P SA value 2857-1) from this assay system is standardized ag ainst the WHO standar d. The test result will be approximatel y 20% lower when comp ared to the equimolar-stand ardiz ed total PSA (Edith Coulte r). Comparison of s erial PSA results louise uld be interpreted with this fact in mi nd. This test was performed using the Siemens chemiluminescen t method. Values obtained from different assay methods cannot be usedinterchange ably. PSA levels, regardless ofva lue, should not be interpreted as absoluteevidenc e of the presence or absence of dise ase. [Automated mess age] The system whic h generated this result transmit long reference range : < OR = 4.00. The reference range was not used to interpret this result as normal/abnormal . RAC (test code = Performing RAC) Organization Information: Site ID: JAVAN Name: [email or web address] Address: [address] [place] [phone] Director: Cali Omalley Lab Interpretation Abnormal (test code = 25295-1) [facility] with platelet and [id number] 08:26:00 Test Item Value Reference Range Interpretation Comments WBC (test code = See_Comment [Automated 4997-2) message] The system which generated this result transmitted reference range : 3.8 - 10.8 Thousand/uL. Th e reference range was not used to interpret this result as normal/abnormal . RBC (test code = See_Comment L [Automated 729-8) message] The system which generated this result transmitted reference range : 4.20 - 5.80 Million/uL. The reference range was not used to interpret this result as normal/abnormal . HGB (test code = 9.1 g/dL 13.2-17.1 L 718-7) HCT (test code = 28.4 % 38.5-50.0 L 4544-3) MCV (test code = 86.1 fL 80.0-100.0 787-2) MCH (test code = 27.6 pg 27.0-33.0 785-6) MCHC (test code = 32.0 g/dL 32.0-36.0 786-4) RDW (test code = 17.2 % 11.0-15.0 H 788-0) Platelet count (test See_Comment [Autom ated code = 777-3) message] The system which generated this result transmitted reference range : 140 - 400 Thousand/uL. Th e reference range was not used to interpret this result as normal/abnormal . MPV (test code = 11.3 fL 7.5-12.5 776-5) Neutrophils, See_Comment [Automated absolute (test code message] The = 751-8) system which generated this result transmitted reference range : 1,500 - 7,800 cells/uL. The reference range was not used to interpret this result as normal/abnormal . Lymphocytes, See_Comment [Automated absolute (test code message] The = 731-0) system which generated this result transmitted reference range : 850 - 3,900 cells/uL. The reference range was not used to interpret this result as normal/abnormal . Monocytes, absolute See_Comment H [Automa long (test code = 742-7) message] The system which generated this result transmitted reference range : 200 - 950 cells/uL. The reference range was not used to interpret this result as normal/abnormal . Eosinophils, See_Comment [Automated absolute (test code message] The = 711-2) system which generated this result transmitted reference range : 15 - 500 cells/uL. The reference range was not used to interpret this result as normal/abnormal . Basophils, absolute See_Comment [Automa long (test code = 704-7) message] The system which generated this result transmitted reference range : 0 - 200 cells/u L. The reference range was not used to interpr et this result as normal/abnormal . Neutrophils (test 66.5 % code = 770-8) Lymphocytes (test 15.6 % code = 736-9) Monocytes (test code 14.4 % = 5905-5) Eosinophils (test 3.1 % code = 713-8) Basophils + RC (test 0.4 % code = 706-2) RAC (test code = Performing RAC) Organization Information: Site ID: JAVAN Name: [employer] [facility] Lab Address: [address] [place] [phone] Director: Cali Omalley Lab Interpretation Abnormal (test code = 67943-1) [facility] [id number] 16:17:27 Test Item Value Reference Range Interpretation Comments SUPPLIER NAME (test [employer] code = 6415) SUPPLIER PHONE (test [phone] code = 6416) ORDER STATUS (test code Delivery Successful = 6417) DELIVERY NOTE (test code = 6419) REQUESTED DELIVEY DATE 03/19/2021 (test code = 6420) ITEM DESCRIPTION (test Wheeled Walker, Adult Qty: 1 code = 6423) EXPECTED DELIVERY DATE 03/23/2021 (test code = 6421) ACTUAL DELIVERY DATE 03/23/2021 (test code = 6422) [facility] [id number] 18:37:06 Test Item Value Reference Range Interpretation Comments POC glucose (test 73 mg/dL 65-99 Clinical Supervisor N freedom: Cotton code = 97776-5) Alyssa Candie Clinton ID: [id number] hartable: [facility] Notified RN [facility]Post [id number] 17:08:20 Test Item Value Reference Range Interpretation Comments Ventricular rate (test code = 253) Atrial rate (test code = 255) MD interval (test code = 266) QRSD interval (test code = 260) QT interval (test code = 264) QTC interval (test code = 265) P axis 1 (test code = 267) QRS axis 1 (test code = 268) T wave axis (test code = 270) EKG impression (test Normal sinus code = 273) rhythm-Normal [facility], 2 [id number] 01:47:00 Test Item Value Reference Range Interpretation Comments Product name (test code Red Blood Cells -1, = 25) Leukored Unit number (test code = [id number]) Product code (test code L4688P67 = 3092) Dispense status (test Returned to not code = 24) transfused Blood expiration date (test code = 302) Blood type code (test code = 308) Blood type (test code = O POSITIVE 1314) Compatibility (test code Compatible = 6400) [facility], 2 Laswn8061-78-14 01:43:00 Test Item Value Reference Range Interpretation Comments Product name (test code Platelets, Aph LR IRR = 25) BM cont1 Unit number (test code = [id number]) Product code (test code V3168E56 = 3092) Dispense status (test Transfused code = 24) Blood expiration date (test code = 302) Blood type code (test code = 308) Blood type (test code = O POSITIVE 1314) Compatibility (test code Not required = 6400) [facility], [id number] 01:37:24 Test Item Value Reference Range Interpretation Comments pH, arterial (test code 7.35-7.45 L = 2744-1) pCO2, arterial (test See_Comment [Autom ated message] code = 2019-8) The system [facility] generated this result transmitted ref erence range: 35 - 45 mmHg. The reference r krystian was not used to interpret this result as normal/abnor mal. pO2, arterial (test code See_Comment H [A utomated message] = 2703-7) The system [facility] generated this result transmitted ref erence range: 80 - 90 mmHg. The reference r krystian was not used to interpret this result as normal/abnor mal. Temperature, Celsius Degrees C (test code = 8310-5) O2 saturation, arterial 99 % 95-100 (test code = 2708-6) pH, arterial corrected (test code = 36429-0) pCO2, arterial corrected mmHg (test code = 87778-3) pO2, arterial corrected mmHg (test code = 55948-6) Base excess, arterial See_Comment L [Auto mated message] (test code = 1925-7) The s tem which generated this result transmitted ref erence range: -2 - 2 m Eq/L. The reference r krystian was not used to interpret this result as normal/abnor mal. Lab Interpretation (test Abnormal code = 64374-2) [facility], [id number] 01:37:24 Test Item Value Reference Range Interpretation Comments Glucose, syringe (test code = 109 mg/dL 65-99 H 2345-7) Lab Interpretation (test code = Abnormal 76870-8) [facility], [id number] 01:37:24 Test Item Value Reference Range Interpretation Comments Hemoglobin, syringe (test code = 9.6 g/dL 14.0-18.0 L 718-7) Lab Interpretation (test code = Abnormal 98536-8) [facility] HospitalIon[facility] calcium, [id number] 01:37:24 Test Item Value Reference Range Interpretation Comments Ionized calcium, arterial (test 1.24 mmol/L 1.11-1.32 code = 62550-0) [facility] HospitalL[facility] acid, [id number] 01:37:24 Test Item Value Reference Range Interpretation Comments Lactic acid, syringe (test code = 0.5 mmol/L 0.5-2.2 65050-6) [facility] HospitalPotassium, [id number] 01:37:24 Test Item Value Reference Range Interpretation Comments Potassium, syringe See_Comment [Automat ed message] The (test code = 2007) system ich generated this result tra nsmitted reference range : 3.5 - 5.0 mEq/L. The refe rence range was not used to interpret this result as normal/abnormal . [facility] [id number] 01:37:24 Test Item Value Reference Range Interpretation Comments Sodium, syringe (test See_Comment [Auto mated message] The code = 2947-0) system which generated this result tra nsmitted reference range : 135 - 148 mEq/L. The refe rence range was not used to interpret this result as normal/abnormal . [facility] and [id number] 18:08:00 Test Item Value Reference Range Interpretation Comments ABO grouping (test code = 883-9) O Rh type (test code = 15065-5) POS Antibody screen (gel) (test code = NEG 890-4) [facility] ONC COURSE [id number] 21:10:55 Test Item Value Reference Range Interpretation Comments Course ID (test code = C3 5706) Course Start Date (test 2021-01-01 @11:07 code = 5707) Treatment Elapsed Days (test code = 5709) Course Intent (test code Palliative = 5686) Treatment Dates (test Course End Date: code = 5685) 2021-01-25 @16:10First Treatment Date: 2021-01-06 @15:11Last Treatment Date: 2021-01-20 @11:01 Reference Point ID (test LS Spine code = 5710) Dosage Given to Date in Gy (test code = 5711) Plan ID (test code = LS Spine 5713) Plan Name (test code = LS Spine 5714) Fractions Treated to Date (test code = 5715) Prescribed Dose Per Fraction in Gy (test code = 5716) Prescription Dose in cGy (test code = 5717) [facility] ONC DAILY [id number] 15:50:20 Test Item Value Reference Range Interpretation Comments Course ID (test code = C3 5706) Course Start Date (test 2021-01-01 @11:07 code = 5707) Treatment Elapsed Days (test code = 5709) Course Intent (test code Palliative = 5686) Treatment Dates (test First Treatment Date: code = 5685) 2021-01-06 @15:11Last Treatment Date: 2021-01-20 @11:01 Reference Point ID (test LS Spine code = 5710) Dosage Given to Date in Gy (test code = 5711) Session Dosage Given in Gy (test code = 5712) Plan ID (test code = LS Spine 5713) Fractions Treated to Date (test code = 5715) Prescribed Dose Per Fraction in Gy (test code = 5716) Prescription Dose in cGy (test code = 5717) [facility] ONC DAILY [id number] 15:38:02 Test Item Value Reference Range Interpretation Comments Course ID (test code = C3 5706) Course Start Date (test 2021-01-01 @11:07 code = 5707) Treatment Elapsed Days (test code = 5709) Course Intent (test code Palliative = 5686) Treatment Dates (test First Treatment Date: code = 5685) 2021-01-06 @15:11Last Treatment Date: 2021-01-19 @10:48 Reference Point ID (test LS Spine code = 5710) Dosage Given to Date in Gy (test code = 5711) Session Dosage Given in Gy (test code = 5712) Plan ID (test code = LS Spine 5713) Fractions Treated to Date (test code = 5715) Prescribed Dose Per Fraction in Gy (test code = 5716) Prescription Dose in cGy (test code = 5717) [facility] ONC DAILY [id number] 15:42:08 Test Item Value Reference Range Interpretation Comments Course ID (test code = C3 5706) Course Start Date (test 2021-01-01 @11:07 code = 5707) Treatment Elapsed Days (test code = 5709) Course Intent (test code Palliative = 5686) Treatment Dates (test First Treatment Date: code = 5685) 2021-01-06 @15:11Last Treatment Date: 2021-01-18 @10:52 Reference Point ID (test LS Spine code = 5710) Dosage Given to Date in Gy (test code = 5711) Session Dosage Given in Gy (test code = 5712) Plan ID (test code = LS Spine 5713) Fractions Treated to Date (test code = 5715) Prescribed Dose Per Fraction in Gy (test code = 5716) Prescription Dose in cGy (test code = 5717) [facility] ONC DAILY [id number] 15:16:38 Test Item Value Reference Range Interpretation Comments Course ID (test code = C3 5706) Course Start Date (test 2021-01-01 @11:07 code = 5707) Treatment Elapsed Days (test code = 5709) Course Intent (test code Palliative = 5686) Treatment Dates (test First Treatment Date: code = 5685) 2021-01-06 @15:11Last Treatment Date: 2021-01-15 @10:26 Reference Point ID (test LS Spine code = 5710) Dosage Given to Date in Gy (test code = 5711) Session Dosage Given in Gy (test code = 5712) Plan ID (test code = LS Spine 5713) Fractions Treated to Date (test code = 5715) Prescribed Dose Per Fraction in Gy (test code = 5716) Prescription Dose in cGy (test code = 5717) [facility] DAILY [id number] 15:13:49 Test Item Value Reference Range Interpretation Comments Course ID (test code = C3 5706) Course Start Date (test 2021-01-01 @11:07 code = 5707) Treatment Elapsed Days (test code = 5709) Course Intent (test code Palliative = 5686) Treatment Dates (test First Treatment Date: code = 5685) 2021-01-06 @15:11Last Treatment Date: 2021-01-13 @10:24 Reference Point ID (test LS Spine code = 5710) Dosage Given to Date in Gy (test code = 5711) Session Dosage Given in Gy (test code = 5712) Plan ID (test code = LS Spine 5713) Fractions Treated to Date (test code = 5715) Prescribed Dose Per Fraction in Gy (test code = 5716) Prescription Dose in cGy (test code = 5717) [facility] DAILY [id number] 15:15:26 Test Item Value Reference Range Interpretation Comments Course ID (test code = C3 5706) Course Start Date (test 2021-01-01 @11:07 code = 5707) Treatment Elapsed Days (test code = 5709) Course Intent (test code Palliative = 5686) Treatment Dates (test First Treatment Date: code = 5685) 2021-01-06 @15:11Last Treatment Date: 2021-01-12 @10:25 Reference Point ID (test LS Spine code = 5710) Dosage Given to Date in Gy (test code = 5711) Session Dosage Given in Gy (test code = 5712) Plan ID (test code = LS Spine 5713) Fractions Treated to 10 Date (test code = 5715) Prescribed Dose Per Fraction in Gy (test code = 5716) Prescription Dose in cGy (test code = 5717) [facility] DAILY [id number] 15:51:56 Test Item Value Reference Range Interpretation Comments Course ID (test code = C3 5706) Course Start Date (test 2021-01-01 @11:07 code = 5707) Treatment Elapsed Days (test code = 5709) Course Intent (test code Palliative = 5686) Treatment Dates (test First Treatment Date: code = 5685) 2021-01-06 @15:11Last Treatment Date: 2021-01-11 @11:01 Reference Point ID (test LS Spine code = 5710) Dosage Given to Date in Gy (test code = 5711) Session Dosage Given in Gy (test code = 5712) Plan ID (test code = LS Spine 5713) Fractions Treated to Date (test code = 5715) Prescribed Dose Per Fraction in Gy (test code = 5716) Prescription Dose in cGy (test code = 5717) [facility] ONC DAILY [id number] 20:22:06 Test Item Value Reference Range Interpretation Comments Course ID (test code = C3 5706) Course Start Date (test 2021-01-01 @11:07 code = 5707) Treatment Elapsed Days (test code = 5709) Course Intent (test code Palliative = 5686) Treatment Dates (test First Treatment Date: code = 5685) 2021-01-06 @15:11Last Treatment Date: 2021-01-08 @15:32 Reference Point ID (test LS Spine code = 5710) Dosage Given to Date in Gy (test code = 5711) Session Dosage Given in Gy (test code = 5712) Plan ID (test code = LS Spine 5713) Fractions Treated to Date (test code = 5715) Prescribed Dose Per Fraction in Gy (test code = 5716) Prescription Dose in cGy (test code = 5717) [facility] ONC DAILY [id number] 20:27:16 Test Item Value Reference Range Interpretation Comments Course ID (test code = C3 5706) Course Start Date (test 2021-01-01 @11:07 code = 5707) Treatment Elapsed Days (test code = 5709) Course Intent (test code Palliative = 5686) Treatment Dates (test First Treatment Date: code = 5685) 2021-01-06 @15:11Last Treatment Date: 2021-01-07 @15:36 Reference Point ID (test LS Spine code = 5710) Dosage Given to Date in Gy (test code = 5711) Session Dosage Given in Gy (test code = 5712) Plan ID (test code = LS Spine 5713) Fractions Treated to 2 Date (test code = 5715) Prescribed Dose Per Fraction in Gy (test code = 5716) Prescription Dose in cGy (test code = 5717) [facility] ONC DAILY [id number] 20:04:21 Test Item Value Reference Range Interpretation Comments Course ID (test code = C3 5706) Course Start Date (test 2021-01-01 @11:07 code = 5707) Treatment Elapsed Days (test code = 5709) Course Intent (test code Palliative = 5686) Treatment Dates (test First Treatment Date: code = 5685) 2021-01-06 @15:11Last Treatment Date: 2021-01-06 @15:13 Reference Point ID (test LS Spine code = 5710) Dosage Given to Date in Gy (test code = 5711) Session Dosage Given in Gy (test code = 5712) Plan ID (test code = LS Spine 5713) Fractions Treated to 1 of 10 Date (test code = 5715) Prescribed Dose Per Fraction in Gy (test code = 5716) Prescription Dose in cGy (test code = 5717) [facility] glycosylated hemoglobin (Hb A1C)2020 17:32:00 Test Item Value Reference Range Interpretation Comments POC Hemoglobin A1C (test code = 7.6 % 0617048) [id number] 03:19:00 Test Item Value Reference Interpretation Comments Range Testosterone, 1 ng/dL 250-1100 L Men with clini liyah total, lc/ms/ms significant hypogonadal (test code = symptoms and te stosterone 2986-8) values repeated ly in the range(Note)For additional information, pl ease refer [email or web address] [email or web address]/faq /TotalTestost eroneLCMSMS(Thi s link is being provided for informational/e ducational purposesonly.)T his test was developed and i ts analytical performancechar acteristics have been deter mined by [employer]. It h as notbeen cleared or appr albert by the FDA. This assay has been validatedpursua nt to the CLIA regulation s and is used for clinical pu rposes. MDFmed agrylp54 01 [facility] [address] [place] [address] [id number] 00MD TONEY Roberson (test code = STATFASTING:YE TONEY) S FASTING: YES RAC (test code = Performing RAC) Organization Information: Site ID: [id number] Name: [employer] Address: [address] [place] [address], [address] [place] [address] Director: Mario Ordoñez Lab Abnormal Interpretation (test code = 66135-5) [facility] [id number] 17:16:13 Test Item Value Reference Range Interpretation Comments Urine culture (test SEE COMMENT Bacteriu hugo screen code = 7657083) negative. [facility]
--- NOTE | 2021-05-11 16:30 | RAD REPORT ---
EXAM DESCRIPTION: RAD - Chest Single View - 05/11/2021 4:22 pm CLINICAL HISTORY: weakness, near syncope Chest pain. COMPARISON: Chest Pa And Lat (2 Views) dated 10/17/2017 FINDINGS: Portable technique limits examination quality. Linear opacities in the right lung base suggests mild infiltrate or atelectasis. Heart size is normal with tortuous thoracic aorta. Right-sided port catheter has tip in the SVC.Lower thoracic hardware i n place.
[2021-05-11] MEDS ORDERED: ONDANSETRON 4 MG/2 ML VIAL ONE (16:42)
[2021-05-11] MEDS ORDERED: NA CHLORIDE 0.9% 1,000 ML ONE (16:42)
[2021-05-11 16:43] LABS: Absolute Lymphocytes (CBC) 0.4 K/uL (0.7-4.9); Hematocrit 33.1 % (39.6-49.0); Lymphocytes % 7.3 % (15.3-44.8); MPV 7.8 fL (7.6-11.3); RBC Red Blood Cell Count 3.95 M/uL (4.33-5.43)
[2021-05-11 16:47] LABS: Protime INR 1.53
[2021-05-11] MEDS ORDERED: KCL 20 MEQ/100 mL IVPB 100 ML IV ONE (17:17)
[2021-05-11 18:01] LABS: SARS-COV-2 RT PCR NEGATIVE (NEGATIVE)
--- NOTE | 2021-05-11 19:37 | RAD REPORT ---
EXAM DESCRIPTION: CT - Thorax Wo Con CLINICAL HISTORY: Chest pain eval pneumonia vs atelectasis COMPARISON: Urinary Bladder dated 01/17/2018 FINDINGS: Linear opacities are present at the right lung base most likely representing subsegmental atelectasis. A small noncalcified 6 mm pulmonary nodule is seen in the superior segment of the left l ower lobe (image 30/57). Small left pleural effusion is seen. No pneumothorax. No axillary, mediastinal or hilar adenopathy. Right port catheter is in place with tip in the SVC. Extensive hardware is present lower thoracic spine. Bony sclerotic lesions seen throughout the skelet on compatible with bony metastatic disease. All CT scans are performed using dose optimization technique as appropriate and may include automated exposure control or mA/KV adjustment according to patient size. IMPRESSION: Linear opacities in the right lung base likely represent subsegmental atelectasis. Noncalcified nonspecific 6 mm nodule superior segment left lower lobe. Diffuse bony metastatic disease with hardware in place in the lower thoracic spine.
[2021-05-11] MEDS ORDERED: POTASSIUM 25 MEQ EFFERV TAB ONE ×2 (19:42→19:47)
[2021-05-11 21:05] LABS: Potassium 3.7 mmol/L (3.5-5.1)
--- NOTE | 2021-05-11 21:36 | EDPHYS ---
Physician Documentation [facility] Name: Marcelino Enriquez Age: 75 yrs Sex: Male : 1945 Arrival Date: 05/11/2021 Time: 15:46 Bed 2 Private MD: ED Physician Greyson Cochran HPI: 05/11 16:43 This 75 yrs old Black Male presents to ER via Unassigned with complaints of Near rn syncope, low blood pressure. 16:43 The patient has experienced near-syncope. Onset: The symptoms/episode began/occurred rn today. Duration: The patient has had multiple episodes. Associated injury: The patient did not suffer any apparent associated injury. Associated signs and symptoms: Pertinent positives: dizziness, lightheadedness, Pertinent negatives: abdominal pain, headache, seizure, shortness of breath, vomiting. The patient has experienced a previous episode. The patient has not recently seen a physician. Patient reports at home earlier tried to sit up and got lightheaded, no syncope, no trauma or fall. Reports felt lightheaded. No fever. Has history of prostate cancer and taking chemotherapy. Reports decreased appetite and not eating or drinking. States can go days before he eats again. Has had problems with dehydration. Also reports extreme malaise and fatigue. Recently admitted at [facility] in [place] and transfused blood. Denies overt bleeding or dark stool.. Historical: - Allergies: 16:50 Darvon; jd3 - Home Meds: 16:50 telmisartan 80 mg oral tab 1 tab once daily [Active]; Flomax 0.4 mg Oral cap 1 cap once jd3 daily [Active]; Lasix 20 mg Oral tab 1 tab once daily [Active]; hydralazine 25 mg Oral tab 1 tab three times a day [Active]; senna oral once daily [Active]; metoprolol succinate 100 mg oral Tb24 1 tab twice a day [Active]; atorvastatin 20 mg oral tab 1 tab daily [Active]; Eliquis 5 mg oral tab 1 tab twice a day [Active]; Robaxin 500 mg Oral tab as needed [Active]; [place] 10-325 mg Oral tab 1 tab every 6 hours [Active]; Lupron Depot (3 month) intramuscular every 3 mo [Active]; - PMHx: 16:50 Diabetes - IDDM; Gout; High Cholesterol; Hypertension; prostate cancer; jd3 - PSHx: 16:50 port o cath placement to right chest; spine; jd3 - Immunization history:: Adult Immunizations up to date, Client reports receiving the 2nd dose of the Covid vaccine, Flu vaccine is up to date. - Social history:: Smoking status: Patient denies any tobacco usage or history of. - Family history:: not pertinent. - Hospitalizations: : Patient was recently seen at. ROS: 16:43 Constitutional: Negative for fever, chills Eyes: Negative for injury, pain, redness, rn and discharge, Neck: Negative for injury, pain, and swelling, Cardiovascular: Negative for chest pain, palpitations, and edema, Respiratory: Negative for shortness of breath, cough, wheezing, and pleuritic chest pain, Abdomen/GI: Negative for abdominal pain, nausea, vomiting, diarrhea, and constipation, Back: Negative for injury and pain, MS/Extremity: Negative for injury and deformity, Skin: Negative for injury, rash, and discoloration, Neuro: Negative for headache, numbness, tingling, and seizure. Exam: 16:43 Constitutional: This is a well developed, well nourished patient who is awake, rn somnolent but awakens to voice Head/Face: Normocephalic, atraumatic. Eyes: Periorbital areas with no swelling, redness, or edema. ENT: Dry mucous membranes Cardiovascular: Tachycardic, regular. No pulse deficits. Respiratory: No increased work of breathing, no retractions or nasal flaring. Abdomen/GI: Soft, non-tender Skin: Warm, dry MS/ Extremity: Pulses equal, no cyanosis. Neurovascular intact. Full, normal range of motion. Equal circumference. Neuro: Awake and alert, GCS 15, oriented to person, place, time, and situation. Cranial nerves II-XII grossly intact. Motor strength 4/5 in all extremities. Sensory grossly intact. Cerebellar exam normal. Vital Signs: 16:57 BP 117 / 74; Pulse 68; Resp 19 S; Temp 97.2(TE); Pulse Ox 98% on R/A; Weight 79.83 kg jd3 (R); Height 5 ft. 10 in. (177.80 cm) (R); Pain 0/10; 17:51 BP 122 / 67; Pulse 76; Resp 18 S; Pulse Ox 99% on R/A; jd3 19:53 BP 108 / 62; Pulse 77; Resp 19; Pulse Ox 99% on R/A; sm5 20:47 BP 127 / 80; Pulse 80; Resp 18; Pulse Ox 100% on R/A; mk 21:46 BP 113 / 64; Pulse 77; Resp 14; Pulse Ox 100% ; sm5 16:57 Body Mass Index 25.25 (79.83 kg, 177.80 cm) jd3 MDM: 15:50 Patient medically screened. rn 19:04 Transition of care: After a detail discussion of the patient's case, care is rn transferred to Greyson Cochran MD. 21:29 Data reviewed: vital signs, nurses notes, lab test result(s), EKG, radiologic studies. pkl ED course: Patient feeling better. Discussed lab, EKG and imaging studies with patient and grand daughter. Advised to keep appt. with PCP in the morning. To return if necessary. Patient and grand daughter understood instructions. 05/11 15:51 Order name: CBC with Diff; Complete Time: 17:06 rn 05/11 15:51 Order name: Basic Metabolic Panel; Complete Time: 17: rn 05/11 15:51 Order name: Protime (+inr); Complete Time: 17:06 rn 05/11 15:51 Order name: Ptt, Activated; Complete Time: 17:06 rn 05/11 15:51 Order name: Blood Culture Adult (2) rn 05/11 15:51 Order name: Procalcitonin; Complete Time: 18:21 rn 05/11 15:51 Order name: Lactate; Complete Time: 17:06 rn 05/11 15:51 Order name: XRAY Chest (1 view); Complete Time: 17:06 rn 05/11 15:51 Order name: COVID-19/FLU A+B (Document "Date of Onset" if Symptomatic); Complete Time: rn 18:21 05/11 17:36 Order name: CT Chest Wo Con; Complete Time: 20:28 rn 05/11 20:09 Order name: Chem 7; Complete Time: 21:28 pkl 05/11 15:51 Order name: IV Start; Complete Time: 16:31 rn 05/11 15:51 Order name: EKG; Complete Time: 15:52 rn 05/11 15:51 Order name: EKG - Nurse/Tech; Complete Time: 17:12 rn Administered Medications: 16:59 Drug: NS 0.9% 1000 ml Route: IV; Rate: 1000 ml; Site: Port-a-cath; ke1 16:59 Drug: Zofran (Ondansetron) 4 mg Route: IVP; Site: Port-a-cath; ke1 17:25 Drug: Potassium Chloride 10 mEq Route: IV; Rate: calculated rate; Site: Port-a-cath; jd3 19:43 Drug: K-Lyte (potassium) Effervescent Tablet 50 mEq Route: PO; Disposition Summary: 05/11/21 21:35 Discharge Ordered Location: Home pkl Problem: new pkl Symptoms: have improved pkl Condition: Stable pkl Diagnosis - Near syncope. Chronic renal disesae. Hypokalemia. Diffuse bony metastatic pkl disease Followup: pkl - With: Private Physician - When: Tomorrow - Reason: Re-evaluation by your physician Forms: - Medication Reconciliation Form pkl - Thank You Letter pkl - Antibiotic Education pkl - Prescription Opioid Use pkl Signatures: Dispatcher [employer] Greyson Quezada MD MD pkl Calvin Arrieta MD MD rn Davies, Jonathon, RN RN jd3 Kotarski, Madeline, RN RN mk Ebrottie, Kouassi, RN RN ke1
--- NOTE | 2021-05-11 21:36 | ER ---
Nurse's Notes [facility] Name: Marcelino Enriquez Age: 75 yrs Sex: Male : 1945 Arrival Date: 05/11/2021 Time: 15:46 Bed 2 Private MD: Diagnosis: Near syncope. Chronic renal disesae. Hypokalemia. Diffuse bony metastatic disease Presentation: 05/11 15:56 Chief complaint: EMS states: "pt was at home when home health stopped in and sat the pt jd3 up. the pt got dizzy and reported the feeling of passing out. the pressure went from 118/54 down to 70's systolics with sitting up.". 16:59 Coronavirus screen: At this time, the client does not indicate any symptoms associated jd3 with coronavirus-19. Ebola Screen: No symptoms or risks identified at this time. Initial Sepsis Screen: Does the patient meet any 2 criteria? No. Patient's initial sepsis screen is negative. Does the patient have a suspected source of infection? No. Patient's initial sepsis screen is negative. Risk Assessment: Do you want to hurt yourself or someone else? Patient reports no desire to harm self or others. Onset of symptoms was May 11, 2021. 16:59 Method Of Arrival: EMS: [facility] jd3 16:59 Acuity: GISELLE 3 jd3 Historical: - Allergies: 16:50 Darvon; jd3 - Home Meds: 16:50 telmisartan 80 mg oral tab 1 tab once daily [Active]; Flomax 0.4 mg Oral cap 1 cap once jd3 daily [Active]; Lasix 20 mg Oral tab 1 tab once daily [Active]; hydralazine 25 mg Oral tab 1 tab three times a day [Active]; senna oral once daily [Active]; metoprolol succinate 100 mg oral Tb24 1 tab twice a day [Active]; atorvastatin 20 mg oral tab 1 tab daily [Active]; Eliquis 5 mg oral tab 1 tab twice a day [Active]; Robaxin 500 mg Oral tab as needed [Active]; [place] 10-325 mg Oral tab 1 tab every 6 hours [Active]; Lupron Depot (3 month) intramuscular every 3 mo [Active]; - PMHx: 16:50 Diabetes - IDDM; Gout; High Cholesterol; Hypertension; prostate cancer; jd3 - PSHx: 16:50 port o cath placement to right chest; spine; jd3 - Immunization history:: Adult Immunizations up to date, Client reports receiving the 2nd dose of the Covid vaccine, Flu vaccine is up to date. - Social history:: Smoking status: Patient denies any tobacco usage or history of. - Family history:: not pertinent. - Hospitalizations: : Patient was recently seen at. Screenin:58 Abuse screen: Denies threats or abuse. Nutritional screening: No deficits noted. jd3 Tuberculosis screening: No symptoms or risk factors identified. Fall Risk IV access (20 points). Ambulatory Aid- Crutches/Cane/Walker (15 pts). Gait- Weak (10 pts.). Mental Status- Oriented to own ability (0 pts). Total Mayo Fall Scale indicates Low Risk Score (25-44 pts). Fall prevention measures have been instituted. Side Rails Up X 2 Placed close to Nursing Station Frequent Obs/Assesments occuring Family Present and informed to notify staff if they need to leave bedside. Assessment: 17:00 General: Appears comfortable, Behavior is calm, cooperative, appropriate for age, jd3 Reports fatigue for 12-24 hours. Pain: Denies pain. Neuro: Level of Consciousness is awake, alert, obeys commands, Oriented to person, place, time, situation. Cardiovascular: Denies chest pain, Capillary refill < 3 seconds Patient's skin is warm and dry. Rhythm is regular. Respiratory: Airway is patent Respiratory effort is even, unlabored, Respiratory pattern is regular, symmetrical, Denies cough, shortness of breath. GI: No signs and/or symptoms were reported involving the gastrointestinal system. : No signs and/or symptoms were reported regarding the genitourinary system. EENT: Oral mucosa is dry. Derm: Skin is intact, Skin is dry, Skin is normal, Skin temperature is warm. Musculoskeletal: Circulation, motion, and sensation intact. Range of motion: intact in all extremities. 17:51 Reassessment: Patient appears in no apparent distress at this time. No changes from jd3 previously documented assessment. Patient and/or family updated on plan of care and expected duration. Pain level reassessed. Patient is alert, oriented x 3, equal unlabored respirations, skin warm/dry/pink. 18:50 Reassessment: Patient appears in no apparent distress at this time. Patient and/or jd3 family updated on plan of care and expected duration. Pain level reassessed. Patient is alert, oriented x 3, equal unlabored respirations, skin warm/dry/pink. 20:48 Reassessment: Patient and/or family updated on plan of care and expected duration. Pain mk level reassessed. Patient is alert, oriented x 3, equal unlabored respirations, skin warm/dry/pink. Patient states feeling better. up to bedside commode w/out distress. Vital Signs: 16:57 BP 117 / 74; Pulse 68; Resp 19 S; Temp 97.2(TE); Pulse Ox 98% on R/A; Weight 79.83 kg jd3 (R); Height 5 ft. 10 in. (177.80 cm) (R); Pain 0/10; 17:51 BP 122 / 67; Pulse 76; Resp 18 S; Pulse Ox 99% on R/A; jd3 19:53 BP 108 / 62; Pulse 77; Resp 19; Pulse Ox 99% on R/A; sm5 20:47 BP 127 / 80; Pulse 80; Resp 18; Pulse Ox 100% on R/A; mk 21:46 BP 113 / 64; Pulse 77; Resp 14; Pulse Ox 100% ; sm5 16:57 Body Mass Index 25.25 (79.83 kg, 177.80 cm) jd3 ED Course: 15:46 Patient arrived in ED. rn 15:50 Calvin Arrieta MD is Attending Physician. rn 15:55 Fitz Greene, CALLUM is Primary Nurse. jd3 16:31 Accessed Port-a-Cath. using accessed w/ # 20 Loaiza needle, Clean \\T\\ dry. Dressing jd3 intact. Good blood return. Flushes easily. 16:58 Arm band placed on. jd3 16:59 Triage completed. jd3 16:59 Patient has correct armband on for positive identification. Placed in gown. Bed in low jd3 position. Call light in reach. Side rails up X2. Adult w/ patient. monitoring analyst on. Pulse ox on. NIBP on. 17:04 XRAY Chest (1 view) In Process Unspecified. EDMS 19:11 Attending Physician role handed off by Calvin Arrieta MD pkl 19:11 Greyson Cochran MD is Attending Physician. pkl 19:30 CT Chest Wo Con In Process Unspecified. EDMS 20:41 Chem 7 Sent. mk 22:27 No provider procedures requiring assistance completed. IV discontinued, intact, sm5 bleeding controlled, No redness/swelling at site. Pressure dressing applied. Administered Medications: 16:59 Drug: NS 0.9% 1000 ml Route: IV; Rate: 1000 ml; Site: Port-a-cath; ke1 16:59 Drug: Zofran (Ondansetron) 4 mg Route: IVP; Site: Port-a-cath; ke1 17:25 Drug: Potassium Chloride 10 mEq Route: IV; Rate: calculated rate; Site: Port-a-cath; jd3 19:43 Drug: K-Lyte (potassium) Effervescent Tablet 50 mEq Route: PO; mk Outcome: 21:35 Discharge ordered by MD. pkl 22:27 Discharged to home via wheelchair, with family. [facility] 22:27 Condition: stable 22:27 Discharge instructions given to patient, family, Instructed on discharge instructions, follow up and referral plans. Demonstrated understanding of instructions, follow-up care. 22:28 Patient left the ED. 5 Signatures: Dispatcher [employer] EDMS Greyson Cochran MD MD pkl Calvin Arrieta MD MD rn Davies, Jonathon, RN RN jd3 Mazur, Sarah, RN RN [facility] Celia Bishop, Bright Crowder RN, RN RN ke1 Corrections: (The following items were deleted from the chart) 18:27 17:01 Reassessment: Patient and/or family updated on plan of care and expected ke1 duration. Pain level reassessed. ke1 22:43 20:48 Reassessment: Patient and/or family updated on plan of care and expected mk duration. Pain level reassessed. Patient is alert, oriented x 3, equal unlabored respirations, skin warm/dry/pink. Patient states feeling better. mk
[2021-05-11 23:20] VITALS: TEMP 97.2
[2021-05-11 23:23] VITALS: O2SAT 100
[2021-05-11 23:24] VITALS: BP 113/64
--- NOTE | 2021-05-12 13:05 | EKG ---
Test Date: 2021-05-11 Test Time: 17:17:06 Medicine Man: JUAN CARLOS MEASUREMENT RESULTS: Intervals: Rate: 76 DC: 140 QRSD: 84 QT: 372 QTc: 418 [place]: P: 34 DC: 140 QRS: 16 T: 87 INTERPRETIVE STATEMENTS: Normal sinus rhythm Nonspecific ST and T wave abnormality Abnormal ECG Compared to ECG 03/16/2006 03:45:37 ST (T wave) deviation now present T-wave abnormality no longer present Left ventricular hypertrophy no longer present Electronically Signed On 05-12-21 13:03:06 DEVELOPMENT VICE PRESIDENT by Mykel Cardoso
== END 2021-05-11 22:28 | disposition home or self-care (01) ==
LOC: ER 15:42
DX: E87.6 Hypokalemia (principal); E11.22 Type 2 diabetes mellitus with diabetic chronic kidney disease; I12.9 Hypertensive chronic kidney disease with stage 1 through stage 4 chronic kidney disease, or unspecified chronic kidney disease; N18.9 Chronic kidney disease, unspecified; C79.51 Secondary malignant neoplasm of bone; Z88.8 Allergy status to other drugs, medicaments and biological substances; Z79.01 Long term (current) use of anticoagulants
CPT/HCPCS: 93005; 87040 ×2; 85025; 80048 ×2; 36415; 85610; 83605; 85730; 84145; 0240U; 71250; 71045; 96375; 96374; 99285; J3480; J7030; J2405